=== PATIENT | male | born 1980 | race Hispanic/Latino ===

== ENCOUNTER 2018-05-20 19:57 | Inpatient (IN) | payer MEDICARE ==
[2018-05-20] MEDS ORDERED: ASPIRIN PO ONE (20:27)
[2018-05-20 20:53] LABS: Hematocrit 40.1 % (35.5-45.6); Hemoglobin 13.5 gm/dl (11.8-15.2); Mean Corpuscular HGB Conc 34 % (32-34); Mean Corpuscular Volume 87 fl (84-94); Platelet Count 217 K/mm3 (140-440); Red Blood Count 4.61 M/mm3 (3.65-5.03); Red Cell Distribution Width 14.4 % (13.2-15.2)
--- NOTE | 2018-05-20 21:14 | Emergency Department Report ---
ED Chest Pain HPI - General Chief Complaint: Chest Pain Stated Complaint: CHEST PAIN Time Seen by Provider: 05/20/18 20:50 Source: patient, EMS Mode of arrival: Stretcher Limitations: Other - History of Present Illness Initial Comments: Patient is a 38-year-old male that presents complaints of chest pain. Patient states the chest pain is already previously states the pain is a 10 out of 10. Patient states the pain is a sharp pain. Patient states the pain is better with rest and worse with exertion. Patient states he had an AR in the past. Patient lives in a intermediate for his psychiatric disorders. Patient has history of diabetes. MD Complaint: chest pain -: Sudden Onset: during rest Pain Location: substernal, left chest Pain Radiation: none Severity: severe Severity scale (0 -10): 10 Quality: sharp Consistency: constant Improves With: rest Worsens With: exertion re: denies: nausea, vomting, diaphoresis, dyspnea, sense of impending doom Other Symptoms: denies: cough, fever, syncope, rash, acid taste in mouth, leg swelling, palpitations, burping Treatments Prior to Arrival: aspirin Aspirin use within the Past 7 Days: (1) Yes - Related Data On Oral Contraceptives: No Home Medications Medication Instructions Recorded Confirmed Last Taken Benztropine [Cogentin] 2 mg PO BID 05/20/18 05/20/18 Unknown Citalopram [Celexa] 1 tab PO QAM 05/20/18 05/20/18 Unknown Divalproex ER [DepaKOTE ER] 500 mg PO HS 05/20/18 05/20/18 Unknown OLANZapine [Zyprexa] 1 tab PO HS 05/20/18 05/20/18 Unknown Paliperidone Palmitate [Invega 273 mg IM QMONTH 05/20/18 05/20/18 Unknown Trinza] Pantoprazole [Protonix TAB] 20 mg PO QDAY 05/20/18 05/20/18 Unknown Allergies Allergy/AdvReac Type Severity Reaction Status Date / Time No Known Allergies Allergy Verified 05/20/18 20:59 Heart Score - HEART Score History: Moderately suspicious EKG: Non-specific Age: < 45 Risk factors: > 3 risk factors or hx of atherosclerotic disease Troponin: < normal limit HEART Score: 4 ED Review of Systems ROS: Stated complaint: CHEST PAIN Other details as noted in HPI Constitutional: denies: chills, fever Eyes: denies: eye pain, eye discharge, vision change ENT: denies: ear pain, throat pain Respiratory: denies: cough, shortness of breath, wheezing Cardiovascular: chest pain. denies: palpitations Endocrine: no symptoms reported Gastrointestinal: denies: abdominal pain, nausea, diarrhea Genitourinary: denies: urgency, dysuria Musculoskeletal: denies: back pain, joint swelling, arthralgia Skin: denies: rash, lesions Neurological: denies: headache, weakness, paresthesias Psychiatric: denies: anxiety, depression Hematological/Lymphatic: denies: easy bleeding, easy bruising ED Past Medical Hx - Past Medical History Previous Medical History?: Yes Hx Heart Attack/AMI: Yes (2006 one stent) Hx Diabetes: Yes Additional medical history: Bipolar, developmental delay - Surgical History Past Surgical History?: Yes Additional Surgical History: Left Knee - Family History Family history: hypertension - Social History Smoking Status: Never Smoker Substance Use Type: None - Medications Home Medications: Home Medications Medication Instructions Recorded Confirmed Last Taken Type Benztropine [Cogentin] 2 mg PO BID 05/20/18 05/20/18 Unknown History Citalopram [Celexa] 1 tab PO QAM 05/20/18 05/20/18 Unknown History Divalproex ER [DepaKOTE ER] 500 mg PO HS 05/20/18 05/20/18 Unknown History OLANZapine [Zyprexa] 1 tab PO HS 05/20/18 05/20/18 Unknown History Paliperidone Palmitate [Invega 273 mg IM QMONTH 05/20/18 05/20/18 Unknown History Trinza] Pantoprazole [Protonix TAB] 20 mg PO QDAY 05/20/18 05/20/18 Unknown History ED Physical Exam - General Limitations: No Limitations, Other General appearance: alert, in no apparent distress - Head Head exam: Present: atraumatic, normocephalic - Eye Eye exam: Present: normal appearance - ENT ENT exam: Present: mucous membranes moist - Neck Neck exam: Present: normal inspection - Respiratory Respiratory exam: Present: normal lung sounds bilaterally. Absent: respiratory distress - Cardiovascular Cardiovascular Exam: Present: regular rate, normal rhythm. Absent: systolic murmur, diastolic murmur, rubs, gallop - GI/Abdominal GI/Abdominal exam: Present: soft, normal bowel sounds - Rectal Rectal exam: Present: deferred - Extremities Exam Extremities exam: Present: normal inspection - Back Exam Back exam: Present: normal inspection - Neurological Exam Neurological exam: Present: alert, oriented X3 - Psychiatric Psychiatric exam: Present: normal affect, normal mood - Skin Skin exam: Present: warm, dry, intact, normal color. Absent: rash ED Course Vital Signs 05/20/18 05/20/18 05/20/18 20:21 21:05 22:00 Temperature 98.2 F Pulse Rate 82 92 H 85 Respiratory 18 21 19 Rate Blood Pressure 150/83 126/86 Blood Pressure 129/79 [Left] O2 Sat by Pulse 99 96 97 Oximetry 05/20/18 23:00 Temperature Pulse Rate 82 Respiratory 19 Rate Blood Pressure 116/71 Blood Pressure [Left] O2 Sat by Pulse 96 Oximetry - Reevaluation(s) Reevaluation #1: Discussed all results with patient. Patient will be admitted to the hospitalist service. Patient agrees with plan of care. 05/20/18 22:41 - Consultations Consultation #1: Hospitalist consulted for admission. Hospitalist to admit patient. Hospitalist to assume care patient. 05/20/18 22:41 TAYLOR score - Taylor Score Age > 65: (0) No Aspirin use within the Past 7 Days: (1) Yes 3 or more CAD Risk Factors: (1) Yes 2 or more Angina events in past 24 hrs: (0) No Known CAD with more than 50% Stenosis: (1) Yes Elevated Cardiac Markers: (0) No ST Deviation Greater than 0.5mm: (0) No TAYLOR Score: 3 ED Medical Decision Making - Lab Data Result diagrams: 05/21/18 02:03 05/21/18 02:03 - EKG Data -: EKG Interpreted by Me EKG shows normal: sinus rhythm, axis, intervals, QRS complexes, ST-T waves Rate: normal - Radiology Data Radiology results: report reviewed, image reviewed interpreted by me: Negative chest x-ray PROCEDURE: XR CHEST 1V AP TECHNIQUE: Chest radiograph single view. HISTORY: Chest Pain COMPARISONS: None . FINDINGS: Heart: Normal. Mediastinum/Vessels: Normal. Lungs/Pleural space: Normal. Bony thorax: No acute osseous abnormality. Life support devices: None. IMPRESSION: No acute cardiopulmonary abnormality. - Medical Decision Making Patient is a 38-year-old male that presents to emergency with chest pain. Patient has history of AR and CAD. Patient was admitted to the hospitalist service for further evaluation and treatment and rule out ACS. Patient's initial cardiac workup is negative. - Differential Diagnosis chest pain. ACS. Critical care attestation.: If time is entered above; I have spent that time in minutes in the direct care of this critically ill patient, excluding procedure time. ED Disposition Clinical Impression: Chest pain Qualifiers: Chest pain type: unspecified Qualified Code(s): R07.9 - Chest pain, unspecified CAD (coronary artery disease) Qualifiers: Coronary Disease-Associated Artery/Lesion type: unspecified vessel or lesion type [place] vs. transplanted heart: [place] heart Associated angina: angina presence unspecified Qualified Code(s): I25.10 - Atherosclerotic heart disease of [place] coronary artery without angina pectoris Disposition: 09 OP ADMIT IP TO THIS HOSP Is pt being admited?: Yes Does the pt Need Aspirin: No Condition: Stable Time of Disposition: 22:46
[2018-05-20 21:33] LABS: Basophils % (Manual) 0 % (0.0-1.8); Total Cells Counted 100
[2018-05-20 21:34] LABS: Anisocytosis 1+
[2018-05-20 21:59] LABS: BUN/Creatinine Ratio 24; Blood Urea Nitrogen 17 mg/dL (9-20); Calcium 9.8 mg/dL (8.4-10.2); Hemolysis Index 1
--- NOTE | 2018-05-21 00:13 | XRay Report ---
PROCEDURE: XR CHEST 1V AP TECHNIQUE: Chest radiograph single view. HISTORY: Chest Pain COMPARISONS: None . FINDINGS: Heart: Normal. Mediastinum/Vessels: Normal. Lungs/Pleural space: Normal. Bony thorax: No acute osseous abnormality. Life support devices: None. IMPRESSION: No acute cardiopulmonary abnormality. This document is electronically signed by Jamila Taylor DO., May 21 2018 12:10:58 AM ET
[2018-05-21] MEDS ORDERED: SODIUM CHLORIDE FLUSH SYRINGE 10 ML IV PRN ×2 (00:35)
[2018-05-21] MEDS ORDERED: TYLENOL PO PRN (00:35)
[2018-05-21] MEDS ORDERED: ZOFRAN IV PRN (00:35)
[2018-05-21 02:25] LABS: Hematocrit 38.1 % (35.5-45.6); Hemoglobin 12.8 gm/dl (11.8-15.2); Mean Corpuscular HGB Conc 34 % (32-34); Mean Corpuscular Volume 87 fl (84-94); Platelet Count 212 K/mm3 (140-440); Red Blood Count 4.38 M/mm3 (3.65-5.03); Red Cell Distribution Width 14.5 % (13.2-15.2)
[2018-05-21 02:40] LABS: BUN/Creatinine Ratio 28; Blood Urea Nitrogen 22 mg/dL (9-20); Calcium 9.4 mg/dL (8.4-10.2); Hemolysis Index 5
--- NOTE | 2018-05-21 03:48 | History and Physical Report ---
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 Patient states that he has a similar chest before, it is a burning chest pains that is usually release with antacid, patient reports shortness of breath but denies diaphoresis denies nausea denies vomiting denies any acute illness. Patient states that he got taken several antacids without relief of the pain he decided to come to the ER for evaluation. In the ER patient had normal EKG, cardiac enzymes were negative, Chest x-ray was normal, patient's E is admitted for further evaluation of the chest pain. Medications and Allergies Allergies Allergy/AdvReac Type Severity Reaction Status Date / Time No Known Allergies Allergy Verified 05/20/18 20:59 Home Medications Medication Instructions Recorded Confirmed Last Taken Type Citalopram [Celexa] 1 tab PO QAM 05/20/18 05/20/18 Unknown History Divalproex ER [Depakote ER] 500 mg PO HS 05/20/18 05/20/18 Unknown History OLANZapine [Zyprexa] 1 tab PO HS 05/20/18 05/20/18 Unknown History Paliperidone Palmitate [Invega 273 mg IM QMONTH 05/20/18 05/20/18 Unknown History Trinza] Benztropine [Cogentin] 2 mg PO BID #60 05/21/18 05/20/18 Unknown Rx Pantoprazole [Protonix TAB] 40 mg PO QDAY #60 05/21/18 05/20/18 Unknown Rx Ciprofloxacin HCl [Cipro] 500 mg PO QDAY #5 tablet 05/24/18 Unknown Rx Ibuprofen [Motrin 600 MG tab] 600 mg PO Q8H PRN #15 tablet 05/24/18 Unknown Rx Polyethylene Glycol 3350 [Miralax 17 gm PO QDAY #15 packet 05/24/18 Unknown Rx 3350] Active Meds: Active Medications Acetaminophen (Tylenol) 650 mg PO Q4H PRN PRN Reason: Pain MILD(1-3)/Fever >100.5/DEL RIO Enoxaparin Sodium (Lovenox) 40 mg SUB-Q QDAY RIANNA Famotidine (Pepcid) 20 mg PO BID RIANNA Ondansetron HCl (Zofran) 4 mg IV Q8H PRN PRN Reason: Nausea And Vomiting Sodium Chloride (Sodium Chloride Flush Syringe 10 Ml) 10 ml IV BID RIANNA Sodium Chloride (Sodium Chloride Flush Syringe 10 Ml) 10 ml IV PRN PRN PRN Reason: LINE FLUSH Sodium Chloride (Sodium Chloride Flush Syringe 10 Ml) 10 ml IV PRN PRN PRN Reason: LINE FLUSH Exam - Constitutional Vitals: Temp Pulse Resp BP Pulse Ox 98.2 F 85 19 116/71 96 05/20/18 21:05 05/21/18 00:30 05/20/18 23:00 05/20/18 23:00 05/20/18 23:00 Results - Labs CBC & Chem 7: 05/21/18 02:03 05/21/18 02:03 Labs: Laboratory Last Values WBC 11.5 K/mm3 (4.5-11.0) H 05/21/18 02:03 RBC 4.38 M/mm3 (3.65-5.03) 05/21/18 02:03 Hgb 12.8 gm/dl (11.8-15.2) 05/21/18 02:03 Hct 38.1 % (35.5-45.6) 05/21/18 02:03 MCV 87 fl (84-94) 05/21/18 02:03 MCH 29 pg (28-32) 05/21/18 02:03 MCHC 34 % (32-34) 05/21/18 02:03 RDW 14.5 % (13.2-15.2) 05/21/18 02:03 Plt Count 212 K/mm3 (140-440) 05/21/18 02:03 Lymph # Centrifugal Operator 05/21/18 02:03 Add Manual Diff Complete 05/20/18 20:32 Total Counted 100 05/20/18 20:32 Seg Neuts % (Manual) 65.0 % (40.0-70.0) 05/20/18 20:32 Band Neutrophils % 0 % 05/20/18 20:32 Lymphocytes % (Manual) 28.0 % (13.4-35.0) 05/20/18 20:32 Reactive Lymphs % (Man) 0 % 05/20/18 20:32 Monocytes % (Manual) 6.0 % (0.0-7.3) 05/20/18 20:32 Eosinophils % (Manual) 1.0 % (0.0-4.3) 05/20/18 20:32 Basophils % (Manual) 0 % (0.0-1.8) 05/20/18 20:32 Metamyelocytes % 0 % 05/20/18 20:32 Myelocytes % 0 % 05/20/18 20:32 Promyelocytes % 0 % 05/20/18 20:32 Blast Cells % 0 % 05/20/18 20:32 Nucleated RBC % Not Reportable 05/20/18 20:32 Seg Neutrophils # Man 8.3 K/mm3 (1.8-7.7) H 05/20/18 20:32 Band Neutrophils # 0.0 K/mm3 05/20/18 20:32 Lymphocytes # (Manual) 3.6 K/mm3 (1.2-5.4) 05/20/18 20:32 Abs React Lymphs (Man) 0.0 K/mm3 05/20/18 20:32 Monocytes # (Manual) 0.8 K/mm3 (0.0-0.8) 05/20/18 20:32 Eosinophils # (Manual) 0.1 K/mm3 (0.0-0.4) 05/20/18 20:32 Basophils # (Manual) 0.0 K/mm3 (0.0-0.1) 05/20/18 20:32 Metamyelocytes # 0.0 K/mm3 05/20/18 20:32 Myelocytes # 0.0 K/mm3 05/20/18 20:32 Promyelocytes # 0.0 K/mm3 05/20/18 20:32 Blast Cells # 0.0 K/mm3 05/20/18 20:32 WBC Morphology Not Reportable 05/20/18 20:32 Hypersegmented Neuts Not Reportable 05/20/18 20:32 Hyposegmented Neuts Not Reportable 05/20/18 20:32 Hypogranular Neuts Not Reportable 05/20/18 20:32 Smudge Cells Not Reportable 05/20/18 20:32 Toxic Granulation Not Reportable 05/20/18 20:32 Toxic Vacuolation Not Reportable 05/20/18 20:32 Dohle Bodies Not Reportable 05/20/18 20:32 Pelger-Huet Anomaly Not Reportable 05/20/18 20:32 Chester Rods Not Reportable 05/20/18 20:32 Platelet Estimate Appears normal 05/20/18 20:32 Clumped Platelets Not Reportable 05/20/18 20:32 Plt Clumps, EDTA Not Reportable 05/20/18 20:32 Large Platelets Not Reportable 05/20/18 20:32 Giant Platelets Not Reportable 05/20/18 20:32 Platelet Satelliting Not Reportable 05/20/18 20:32 Plt Morphology Comment Not Reportable 05/20/18 20:32 RBC Morphology Not Reportable 05/20/18 20:32 Dimorphic RBCs Not Reportable 05/20/18 20:32 Polychromasia Not Reportable 05/20/18 20:32 Hypochromasia Not Reportable 05/20/18 20:32 Poikilocytosis Not Reportable 05/20/18 20:32 Anisocytosis 1+ 05/20/18 20:32 Microcytosis Few 05/20/18 20:32 Macrocytosis Not Reportable 05/20/18 20:32 Spherocytes Not Reportable 05/20/18 20:32 Pappenheimer Bodies Not Reportable 05/20/18 20:32 Sickle Cells Not Reportable 05/20/18 20:32 Target Cells Not Reportable 05/20/18 20:32 Tear Drop Cells Not Reportable 05/20/18 20:32 Ovalocytes Not Reportable 05/20/18 20:32 Helmet Cells Not Reportable 05/20/18 20:32 [place] Bodies Not Reportable 05/20/18 20:32 [place] Rings Not Reportable 05/20/18 20:32 Sherry Cells Not Reportable 05/20/18 20:32 Bite Cells Not Reportable 05/20/18 20:32 Crenated Cell Not Reportable 05/20/18 20:32 Elliptocytes Not Reportable 05/20/18 20:32 Acanthocytes (Spur) Not Reportable 05/20/18 20:32 Rouleaux Not Reportable 05/20/18 20:32 Hemoglobin C Crystals Not Reportable 05/20/18 20:32 Schistocytes Not Reportable 05/20/18 20:32 Malaria parasites Not Reportable 05/20/18 20:32 Mateo Bodies Not Reportable 05/20/18 20:32 Hem Pathologist Commnt No 05/20/18 20:32 Sodium 143 mmol/L (137-145) 05/21/18 02:03 Potassium 3.8 mmol/L (3.6-5.0) 05/21/18 02:03 Chloride 103.8 mmol/L (98-107) 05/21/18 02:03 Carbon Dioxide 28 mmol/L (22-30) 05/21/18 02:03 Anion Gap 15 mmol/L 05/21/18 02:03 BUN 22 mg/dL (9-20) H 05/21/18 02:03 Creatinine 0.8 mg/dL (0.8-1.5) 05/21/18 02:03 Estimated GFR > 60 ml/min 05/21/18 02:03 BUN/Creatinine Ratio 28 % 05/21/18 02:03 Glucose 129 mg/dL (75-100) H 05/21/18 02:03 Calcium 9.4 mg/dL (8.4-10.2) 05/21/18 02:03 Troponin T < 0.010 ng/mL (0.00-0.029) 05/21/18 01:56 Assessment and Plan Assessment and plan: 1. Chest pain r/o cardiac versus GI etiology. 2. DM type II (stable) 3. CAD status post stent 4. Bipolar disorder 5. GERD (on PPI) 6. Mentally challenge Plan: Patient is admitted for chest pain Continue cardiac enzymes every 62 Monitor vital signs/telemetry which is his Resume home meds Insulin per sliding scale PPI for heartburn Nothing by mouth for stress test in a.m. Further plan per the stress test results Plan of care discussed with patient (needs reinforcement) Patient's condition and plan of care was discussed with Dr. Flores Advance Directives: Yes VTE prophylaxis?: Chemical Plan of care discussed with patient/family: Yes <RUTHANN FLORES - Last Filed: 05/26/18 22:41> History of Present Illness Date of admission: 05/20/18 23:16 Medications and Allergies Active Meds: Active Medications Acetaminophen (Tylenol) 650 mg PO Q4H PRN PRN Reason: Pain MILD(1-3)/Fever >100.5/DEL RIO Benztropine Mesylate (Cogentin) 2 mg PO BID RIANNA Citalopram Hydrobromide (Celexa) 20 mg PO QAM RIANNA Divalproex Sodium (Depakote Er) 500 mg PO HS RIANNA Enoxaparin Sodium (Lovenox) 40 mg SUB-Q QDAY RIANNA Famotidine (Pepcid) 20 mg PO BID RIANNA Insulin Human Regular (Humulin R) 0 units SUB-Q ACHS RIANNA; Protocol Miscellaneous Medication (Paliperidone Palmitate [Invega Trinza]) 273 mg IM QMONTH RIANNA Olanzapine (Zyprexa) 15 mg PO HS RIANNA Ondansetron HCl (Zofran) 4 mg IV Q8H PRN PRN Reason: Nausea And Vomiting Pantoprazole Sodium (Protonix) 20 mg PO QDAY RIANNA Sodium Chloride (Sodium Chloride Flush Syringe 10 Ml) 10 ml IV BID RIANNA Sodium Chloride (Sodium Chloride Flush Syringe 10 Ml) 10 ml IV PRN PRN PRN Reason: LINE FLUSH Sodium Chloride (Sodium Chloride Flush Syringe 10 Ml) 10 ml IV PRN PRN PRN Reason: LINE FLUSH Exam - Constitutional Vitals: Temp Pulse Resp BP Pulse Ox 98.2 F 85 19 116/71 96 05/20/18 21:05 05/21/18 00:30 05/20/18 23:00 05/20/18 23:00 05/20/18 23:00 Results - Labs CBC & Chem 7: 05/21/18 02:03 05/21/18 02:03 Labs: Laboratory Last Values WBC 11.5 K/mm3 (4.5-11.0) H 05/21/18 02:03 RBC 4.38 M/mm3 (3.65-5.03) 05/21/18 02:03 Hgb 12.8 gm/dl (11.8-15.2) 05/21/18 02:03 Hct 38.1 % (35.5-45.6) 05/21/18 02:03 MCV 87 fl (84-94) 05/21/18 02:03 MCH 29 pg (28-32) 05/21/18 02:03 MCHC 34 % (32-34) 05/21/18 02:03 RDW 14.5 % (13.2-15.2) 05/21/18 02:03 Plt Count 212 K/mm3 (140-440) 05/21/18 02:03 Lymph # Centrifugal Operator 05/21/18 02:03 Add Manual Diff Complete 05/20/18 20:32 Total Counted 100 05/20/18 20:32 Seg Neuts % (Manual) 65.0 % (40.0-70.0) 05/20/18 20:32 Band Neutrophils % 0 % 05/20/18 20:32 Lymphocytes % (Manual) 28.0 % (13.4-35.0) 05/20/18 20:32 Reactive Lymphs % (Man) 0 % 05/20/18 20:32 Monocytes % (Manual) 6.0 % (0.0-7.3) 05/20/18 20:32 Eosinophils % (Manual) 1.0 % (0.0-4.3) 05/20/18 20:32 Basophils % (Manual) 0 % (0.0-1.8) 05/20/18 20:32 Metamyelocytes % 0 % 05/20/18 20:32 Myelocytes % 0 % 05/20/18 20:32 Promyelocytes % 0 % 05/20/18 20:32 Blast Cells % 0 % 05/20/18 20:32 Nucleated RBC % Not Reportable 05/20/18 20:32 Seg Neutrophils # Man 8.3 K/mm3 (1.8-7.7) H 05/20/18 20:32 Band Neutrophils # 0.0 K/mm3 05/20/18 20:32 Lymphocytes # (Manual) 3.6 K/mm3 (1.2-5.4) 05/20/18 20:32 Abs React Lymphs (Man) 0.0 K/mm3 05/20/18 20:32 Monocytes # (Manual) 0.8 K/mm3 (0.0-0.8) 05/20/18 20:32 Eosinophils # (Manual) 0.1 K/mm3 (0.0-0.4) 05/20/18 20:32 Basophils # (Manual) 0.0 K/mm3 (0.0-0.1) 05/20/18 20:32 Metamyelocytes # 0.0 K/mm3 05/20/18 20:32 Myelocytes # 0.0 K/mm3 05/20/18 20:32 Promyelocytes # 0.0 K/mm3 05/20/18 20:32 Blast Cells # 0.0 K/mm3 05/20/18 20:32 WBC Morphology Not Reportable 05/20/18 20:32 Hypersegmented Neuts Not Reportable 05/20/18 20:32 Hyposegmented Neuts Not Reportable 05/20/18 20:32 Hypogranular Neuts Not Reportable 05/20/18 20:32 Smudge Cells Not Reportable 05/20/18 20:32 Toxic Granulation Not Reportable 05/20/18 20:32 Toxic Vacuolation Not Reportable 05/20/18 20:32 Dohle Bodies Not Reportable 05/20/18 20:32 Pelger-Huet Anomaly Not Reportable 05/20/18 20:32 [place] Rods Not Reportable 05/20/18 20:32 Platelet Estimate Appears normal 05/20/18 20:32 Clumped Platelets Not Reportable 05/20/18 20:32 Plt Clumps, EDTA Not Reportable 05/20/18 20:32 Large Platelets Not Reportable 05/20/18 20:32 Giant Platelets Not Reportable 05/20/18 20:32 Platelet Satelliting Not Reportable 05/20/18 20:32 Plt Morphology Comment Not Reportable 05/20/18 20:32 RBC Morphology Not Reportable 05/20/18 20:32 Dimorphic RBCs Not Reportable 05/20/18 20:32 Polychromasia Not Reportable 05/20/18 20:32 Hypochromasia Not Reportable 05/20/18 20:32 Poikilocytosis Not Reportable 05/20/18 20:32 Anisocytosis 1+ 05/20/18 20:32 Microcytosis Few 05/20/18 20:32 Macrocytosis Not Reportable 05/20/18 20:32 Spherocytes Not Reportable 05/20/18 20:32 Pappenheimer Bodies Not Reportable 05/20/18 20:32 Sickle Cells Not Reportable 05/20/18 20:32 Target Cells Not Reportable 05/20/18 20:32 Tear Drop Cells Not Reportable 05/20/18 20:32 Ovalocytes Not Reportable 05/20/18 20:32 Helmet Cells Not Reportable 05/20/18 20:32 [place] Bodies Not Reportable 05/20/18 20:32 [place] Rings Not Reportable 05/20/18 20:32 Sherry Cells Not Reportable 05/20/18 20:32 Bite Cells Not Reportable 05/20/18 20:32 Crenated Cell Not Reportable 05/20/18 20:32 Elliptocytes Not Reportable 05/20/18 20:32 Acanthocytes (Spur) Not Reportable 05/20/18 20:32 Rouleaux Not Reportable 05/20/18 20:32 Hemoglobin C Crystals Not Reportable 05/20/18 20:32 Schistocytes Not Reportable 05/20/18 20:32 Malaria parasites Not Reportable 05/20/18 20:32 Mateo Bodies Not Reportable 05/20/18 20:32 Hem Pathologist Commnt No 05/20/18 20:32 Sodium 143 mmol/L (137-145) 05/21/18 02:03 Potassium 3.8 mmol/L (3.6-5.0) 05/21/18 02:03 Chloride 103.8 mmol/L (98-107) 05/21/18 02:03 Carbon Dioxide 28 mmol/L (22-30) 05/21/18 02:03 Anion Gap 15 mmol/L 05/21/18 02:03 BUN 22 mg/dL (9-20) H 05/21/18 02:03 Creatinine 0.8 mg/dL (0.8-1.5) 05/21/18 02:03 Estimated GFR > 60 ml/min 05/21/18 02:03 BUN/Creatinine Ratio 28 % 05/21/18 02:03 Glucose 129 mg/dL (75-100) H 05/21/18 02:03 Calcium 9.4 mg/dL (8.4-10.2) 05/21/18 02:03 Troponin T < 0.010 ng/mL (0.00-0.029) 05/21/18 01:56 Triglycerides 216 mg/dL (2-149) H 05/21/18 02:03 Cholesterol 162 mg/dL (50-199) 05/21/18 02:03 LDL Cholesterol Direct 113 mg/dL (50-130) 05/21/18 02:03 HDL Cholesterol 25 mg/dL (40-59) L 05/21/18 02:03 Cholesterol/HDL Ratio 6.48 % 05/21/18 02:03 Assessment and Plan Assessment and plan: 38-year-old man with a history of hypertension, coronary artery disease, bipolar, developmental delay is emergency room with complaints of chest pain located in the epigastric area. He describes a sharp, intermittent every 5 minutes, associated with shortness of breath. His physical exam is benign, currently would stress test
[2018-05-21] MEDS ORDERED: PALIPERIDONE PALMITATE IM SCH (04:15)
[2018-05-21 04:49] LABS: Chol/HDL Ratio 6.48 %
[2018-05-21 06:06] LABS: Band Neutrophils # (Manual) 0.1 K/mm3; Basophils % (Manual) 0 % (0.0-1.8); RBC Morphology Normal; Total Cells Counted 100
[2018-05-21] MEDS: HumuLIN R SUB-Q SCH ×4 (07:40→21:11)
[2018-05-21] MEDS ORDERED: LEXISCAN IV ONE ×2 (07:58→08:33)
[2018-05-21] MEDS: LOVENOX SUB-Q SCH ×2 (10:13→13:22)
--- NOTE | 2018-05-21 11:48 | Discharge Summary ---
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 His CE was normal, stress test was normal. He was then discharge back to [facility] in medically stable condition. Discharge Diagnosis: 1. Chest pain, likely from GERD, will cont PPI - stress test was normal 2. DM type II (stable) 3. CAD status post stent 4. Bipolar disorder 5. GERD (on PPI) 6. Mentally challenged Disposition: DC-01 TO HOME OR SELFCARE Time spent for discharge: 34 minutes Core Measure Documentation - Palliative Care Palliative Care/ Comfort Measures: Not Applicable - Core Measures Any of the following diagnoses?: none Exam - Constitutional Vitals: Temp Pulse Resp BP Pulse Ox 98.2 F 73 20 126/87 94 05/21/18 10:54 05/21/18 10:54 05/21/18 10:54 05/21/18 10:54 05/21/18 10:54 General appearance: Present: no acute distress, well-nourished - EENT Eyes: Present: PERRL ENT: hearing intact, clear oral mucosa - Neck Neck: Present: supple, normal ROM - Respiratory Respiratory effort: normal Respiratory: bilateral: CTA - Cardiovascular Heart Sounds: Present: S1 & S2. Absent: rub, click - Extremities Extremities: pulses symmetrical, No edema Peripheral Pulses: within normal limits - Abdominal General gastrointestinal: Present: soft, non-tender, non-distended, normal bowel sounds - Integumentary Integumentary: Present: clear, warm, dry - Musculoskeletal Musculoskeletal: gait normal, strength equal bilaterally - Psychiatric Psychiatric: appropriate mood/affect, intact judgment & insight - Neurologic Neurologic: CNII-XII intact, moves all extremities Plan Activity: advance as tolerated Weight Bearing Status: Weight Bear as Tolerated Diet: low fat, low salt Follow up with: RENATA BOBO MD [Primary Care Provider] - 7 Days
[2018-05-21] MEDS: PEPCID PO SCH ×2 (12:13→21:10)
[2018-05-21] MEDS: PROTONIX PO SCH (12:13)
[2018-05-21] MEDS: COGENTIN PO SCH ×2 (12:13→21:11)
[2018-05-21] MEDS: celeXA PO SCH (12:13)
[2018-05-21] MEDS: SODIUM CHLORIDE FLUSH SYRINGE 10 ML IV SCH ×2 (12:15→21:12)
--- NOTE | 2018-05-21 12:46 | Treadmill Report ---
NUCLEAR PERFUSION STUDY REASON FOR STUDY: Chest pain. READING PHYSICIAN: Carson Amaya MD IMAGING PROTOCOL: The patient received 10 mCi of Technetium 99m Tetrofosmin for resting image and 28 mCi of Technetium 99m Tetrofosmin for stress imaging. The imaging for the whole procedure was completed 30-90 minutes following the initial injection of Technetium 99m Tetrofosmin. The SPECT imaging in the 180 degree arc was performed in the right anterior oblique projection. Computerized reconstruction of the images was performed for analysis. IMAGING RESULTS: Normal cavity size from stress to rest. Normal distribution of radionuclide in the anterior, inferior, septal, and apical regions. Gated SPECT, EF greater than 65% with no wall motion abnormality. The patient infused Lexiscan with no EKG changes. SUMMARY: 1. Negative Lexiscan EKG. 2. Normal rest and stress myocardial perfusion scan. No significant stress ischemia. No wall motion abnormality. Gated SPECT, EF greater than 65%. JOB# [id number] ALEJANDRA/ASA
[2018-05-22 08:05] VITALS: BP 114/73
[2018-05-22] MEDS: celeXA PO SCH (09:50)
[2018-05-22] MEDS: PROTONIX PO SCH (09:51)
[2018-05-22] MEDS: COGENTIN PO SCH (09:51)
[2018-05-22] MEDS: LOVENOX SUB-Q SCH (11:51)
[2018-05-22] MEDS: HumuLIN R SUB-Q SCH (11:51)
--- NOTE | 2018-05-22 12:53 | Event Note ---
Date: 05/22/18 Patient was not discharged yesterday because communication could not be made with [place]. He was discharged today.
== END 2018-05-22 10:00 | disposition home or self-care (01) | DRG 392 ==
LOC: ED 19:57 → 4A 23:16
PROVIDERS: ADMIT Internal Medicine; ATTEND Internal Medicine
DX: K21.9 Gastro-esophageal reflux disease without esophagitis (principal); I25.10 Atherosclerotic heart disease of native coronary artery without angina pectoris; F31.9 Bipolar disorder, unspecified; E11.9 Type 2 diabetes mellitus without complications; Z95.5 Presence of coronary angioplasty implant and graft; Z79.4 Long term (current) use of insulin; Z79.899 Other long term (current) drug therapy; Z82.49 Family history of ischemic heart disease and other diseases of the circulatory system
CPT/HCPCS: 36415; 71045; 78452; 80048; 80061; 82962; 84484; 85007; 85025; 87116; 93005; 93010; 93017; G0378; A9502; J1650; J2785

== ENCOUNTER 2018-05-24 16:38 | Emergency (ER) | payer MEDICARE ==
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
[2018-05-24 17:16] VITALS: BP 126/85
[2018-05-24 18:14] LABS: Hematocrit 40.3 % (35.5-45.6); Hemoglobin 13.6 gm/dl (11.8-15.2); Mean Corpuscular HGB Conc 34 % (32-34); Mean Corpuscular Volume 86 fl (84-94); Platelet Count 225 K/mm3 (140-440); Red Blood Count 4.67 M/mm3 (3.65-5.03)
[2018-05-24 18:34] LABS: Bilirubin,Urine NEG (Negative); Blood,Urine NEG (Negative); Color,Urine Amber (Yellow); Mucus,Urine 3+ /HPF
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
[2018-05-24] MEDS ORDERED: IBUPROFEN PO ONE (20:08)
--- NOTE | 2018-05-24 20:53 | Cat Scan Report ---
PROCEDURE: CT ABDOMEN PELVIS WO CON TECHNIQUE: Axial helical imaging through the abdomen and pelvis with sagittal and coronal reformatte d images obtained. HISTORY: r/o kidney stones COMPARISONS: None FINDINGS: The lung bases are without infiltrate, pneumothorax or pleural fluid collection. There are calcified lymph nodes in the mediastinum and right hilum consistent with chronic granulomat ous change. The liver, spleen, pancreas and adrenal glands are unremarkable. The gallbladder is moderately distended and unremarkable. The kidneys are unremarkable. There is no evidence of hydronephrosis, hydroureter or urinary tract ca lculi. The bowel is normal caliber. There is a moderate amount of stool in the ascending, transverse, descending and sigmoid colon. The appendix is not definitively visualized. There is no evidence of inflammatory change in the expec sergey location of the appendix. There is no evidence of pneumoperitoneum or free fluid. The abdominal aorta is normal caliber. There is no evidence of intra-abdominal adenopathy. The urinary bladder is decompressed which limits evaluation. The prostate gland and seminal vesicles are unremarkable. The bony structures are are notable for the appearance of canal stenosis at the L4-L5 level secondary to spondylitic change possibly superimposed on congenital canal stenosis. IMPRESSION: 1. No evidence of an acute intra-abdominal process. 2. No evidence of hydronephrosis nor urinary tract calculi. 3. Spondylitic change lower lumbar spine with canal stenosis possibly superimposed on congenital sebastian l stenosis. 4. Calcified lymph nodes in the mediastinum and right hilum consistent with chronic granulomatous stephane nge. 5. Moderate amount of stool in the ascending, transverse, descending and sigmoid colon. This document is electronically signed by Marissa Duggan MD., May 24 2018 08:51:11 PM ET
[2018-05-24 22:48] LABS: Platelet Estimate Consistent w Auto; RBC Morphology Normal; Total Cells Counted 100
== END 2018-05-24 21:10 | disposition home or self-care (01) ==
LOC: ED 16:38
DX: N39.0 Urinary tract infection, site not specified (principal); K59.00 Constipation, unspecified; I25.2 Old myocardial infarction; E11.9 Type 2 diabetes mellitus without complications; F31.9 Bipolar disorder, unspecified
CPT/HCPCS: 36415; 74176; 81001; 85007; 85025

== ENCOUNTER 2018-06-15 19:07 | Emergency (ER) | payer MEDICARE ==
--- NOTE | 2018-06-15 19:55 | Emergency Department Report ---
Blank Doc - Documentation Documentation: This is a 38-year-old male that presents with chest pain and SOB. This initial assessment/diagnostic orders/clinical plan/treatment(s) is/are subject to change based on patient's health status, clinical progression and re- assessment by fellow clinical providers in the ED. Further treatment and workup at subsequent clinical providers discretion. Patient/guardians urged not to elope from the ED as their condition may be serious if not clinically assessed and managed. Initial orders include: 1- Patient sent to MAIN ED for further evaluation and treatment 2- labs 3- EKG 4- CXR
[2018-06-15 20:20] LABS: Hemoglobin 13.1 gm/dl (11.8-15.2); Mean Corpuscular HGB Conc 34 % (32-34); Mean Corpuscular Volume 86 fl (84-94); Platelet Count 199 K/mm3 (140-440); Red Blood Count 4.42 M/mm3 (3.65-5.03); Red Cell Distribution Width 13.2 % (13.2-15.2)
[2018-06-15 20:31] LABS: INR 0.93 (0.87-1.13)
[2018-06-15 20:32] LABS: Partial Thromboplastin Time 25.6 Sec. (24.2-36.6)
[2018-06-15 20:37] LABS: BUN/Creatinine Ratio 17; Blood Urea Nitrogen 12 mg/dL (9-20); Calcium 9.4 mg/dL (8.4-10.2); Hemolysis Index 8
[2018-06-15] MEDS ORDERED: ZOFRAN ODT PO ONE (20:42)
[2018-06-15] MEDS ORDERED: ALUM-MAG HYDROX-SIMETH 200-200-20MG/5ML PO ONE (20:42)
[2018-06-15] MEDS ORDERED: NORCO 5/325 PO ONE (20:42)
--- NOTE | 2018-06-15 20:48 | Emergency Department Report ---
ED Chest Pain HPI - General Chief Complaint: Chest Pain Stated Complaint: CHEST PAIN Time Seen by Provider: 06/15/18 19:54 Source: patient Mode of arrival: Stretcher Limitations: No Limitations - History of Present Illness Initial Comments: Mr. Holman is a 38 yo male with hx of CAD s/p cardiac stent, [place], DM, GERD Bipolar disorder who presents with one week constant central sharp chest pain. Patient called 911, transported via EMS. ASA given per EMS. CP not associated with exertion. Constant. According to EMR, normal/negative lexican EKG, with normal rest/stress myocardial perfusion scan. EF > 65%, Performed May 21, 2018 during recent hospitalization. MD Complaint: chest pain -: Gradual, week(s) (1) Onset: during rest Pain Location: substernal Pain Radiation: none Severity: moderate Severity scale (0 -10): 10 Quality: sharp Consistency: constant Improves With: nothing Worsens With: nothing - Related Data Home Medications Medication Instructions Recorded Confirmed Last Taken Citalopram [Celexa] 1 tab PO QAM 05/20/18 05/20/18 Unknown Divalproex ER [Depakote ER] 500 mg PO HS 05/20/18 05/20/18 Unknown OLANZapine [Zyprexa] 1 tab PO HS 05/20/18 05/20/18 Unknown Paliperidone Palmitate [Invega 273 mg IM QMONTH 05/20/18 05/20/18 Unknown Trinza] Previous Rx's Medication Instructions Recorded Last Taken Type Benztropine [Cogentin] 2 mg PO BID #60 05/21/18 Unknown Rx Pantoprazole [Protonix TAB] 40 mg PO QDAY #60 05/21/18 Unknown Rx Ciprofloxacin HCl [Cipro] 500 mg PO QDAY #5 tablet 05/24/18 Unknown Rx Ibuprofen [Motrin 600 MG tab] 600 mg PO Q8H PRN #15 tablet 05/24/18 Unknown Rx Polyethylene Glycol 3350 [Miralax 17 gm PO QDAY #15 packet 05/24/18 Unknown Rx 3350] Allergies Allergy/AdvReac Type Severity Reaction Status Date / Time No Known Allergies Allergy Verified 05/20/18 20:59 Heart Score - HEART Score History: Slightly suspicious EKG: Normal Age: < 45 Risk factors: > 3 risk factors or hx of atherosclerotic disease Troponin: < normal limit HEART Score: 2 ED Review of Systems ROS: Stated complaint: CHEST PAIN Other details as noted in HPI Comment: All other systems reviewed and negative Constitutional: denies: fever, malaise Respiratory: denies: cough, shortness of breath Gastrointestinal: denies: abdominal pain ED Past Medical Hx - Past Medical History Previous Medical History?: Yes Hx Heart Attack/AMI: Yes (2005 one stent) Hx Diabetes: Yes Additional medical history: Bipolar, developmental delay,AFIB - Surgical History Hx Coronary Stent: Yes Additional Surgical History: Left Knee - Social History Smoking Status: Never Smoker Substance Use Type: None - Medications Home Medications: Home Medications Medication Instructions Recorded Confirmed Last Taken Type Citalopram [Celexa] 1 tab PO QAM 05/20/18 05/20/18 Unknown History Divalproex ER [Depakote ER] 500 mg PO HS 05/20/18 05/20/18 Unknown History OLANZapine [Zyprexa] 1 tab PO HS 05/20/18 05/20/18 Unknown History Paliperidone Palmitate [Invega 273 mg IM QMONTH 05/20/18 05/20/18 Unknown History Trinza] Benztropine [Cogentin] 2 mg PO BID #60 05/21/18 05/20/18 Unknown Rx Pantoprazole [Protonix TAB] 40 mg PO QDAY #60 05/21/18 05/20/18 Unknown Rx Ciprofloxacin HCl [Cipro] 500 mg PO QDAY #5 tablet 05/24/18 Unknown Rx Ibuprofen [Motrin 600 MG tab] 600 mg PO Q8H PRN #15 tablet 05/24/18 Unknown Rx Polyethylene Glycol 3350 [Miralax 17 gm PO QDAY #15 packet 05/24/18 Unknown Rx 3350] ED Physical Exam - General Limitations: No Limitations General appearance: alert, in no apparent distress - Head Head exam: Present: atraumatic, normocephalic - Eye Eye exam: Present: normal appearance - ENT ENT exam: Present: mucous membranes moist - Neck Neck exam: Present: normal inspection, full ROM. Absent: tenderness, meni ngismus - Respiratory Respiratory exam: Present: normal lung sounds bilaterally. Absent: respiratory distress, wheezes, rales, rhonchi - Cardiovascular Cardiovascular Exam: Present: regular rate, normal rhythm, normal heart sounds. Absent: systolic murmur, diastolic murmur, rubs, gallop - GI/Abdominal GI/Abdominal exam: Present: soft, normal bowel sounds. Absent: distended, ten derness, guarding, rebound - Rectal Rectal exam: Present: deferred - Extremities Exam Extremities exam: Present: normal inspection - Back Exam Back exam: Present: normal inspection - Neurological Exam Neurological exam: Present: alert, oriented X3 - Psychiatric Psychiatric exam: Present: normal affect, normal mood - Skin Skin exam: Present: warm, dry, intact, normal color. Absent: rash ED Course Vital Signs 06/15/18 06/15/18 06/15/18 19:34 19:55 20:42 Temperature 98.4 F 98.4 F Pulse Rate 90 96 H 84 Respiratory 18 18 16 Rate Blood Pressure 115/78 115/78 Blood Pressure 128/83 [Left] O2 Sat by Pulse 95 96 97 Oximetry 06/15/18 20:44 Temperature Pulse Rate 82 Respiratory Rate Blood Pressure Blood Pressure [Left] O2 Sat by Pulse Oximetry TAYLOR score - Taylor Score Age > 65: (0) No Aspirin use within the Past 7 Days: (1) Yes 3 or more CAD Risk Factors: (1) Yes 2 or more Angina events in past 24 hrs: (0) No Known CAD with more than 50% Stenosis: (1) Yes Elevated Cardiac Markers: (0) No ST Deviation Greater than 0.5mm: (0) No TAYLOR Score: 3 ED Medical Decision Making - Lab Data Result diagrams: 06/15/18 20:10 06/15/18 20:10 - EKG Data -: EKG Interpreted by Oh EKG shows normal: sinus rhythm, axis, intervals, QRS complexes, ST-T waves Rate: normal - EKG Data 06/15/18 20:50 NSR rate 80 bpm unchanged from 05/21/2018 - Radiology Data Radiology results: report reviewed - Medical Decision Making Chest pain for one week without indication of PE, ACS, PTX, dissection, or any other emergent cause of chest pain. Two sets of troponin assays negative. Recent hospitalization with normal stress test. atypical for ACS dc' d home Critical care attestation.: If time is entered above; I have spent that time in minutes in the direct care of this critically ill patient, excluding procedure time. ED Disposition Clinical Impression: Chest pain, CAD (coronary artery disease), GERD (gastroesophageal reflux disease) Disposition: DC-01 TO HOME OR SELFCARE Is pt being admited?: No Does the pt Need Aspirin: No Condition: Stable Instructions: Chest Pain (ED) Referrals: [facility] [Outside] - 3-5 Days
[2018-06-15 20:59] LABS: Basophils % (Manual) 0 % (0.0-1.8); Myelocytes # (Manual) 0.1 K/mm3; Total Cells Counted 100
[2018-06-15 21:00] LABS: Anisocytosis 1+; Platelet Estimate Consistent w Auto
--- NOTE | 2018-06-15 22:12 | XRay Report ---
PROCEDURE: XR CHEST ROUTINE 2V TECHNIQUE: 2 view chest HISTORY: Chest Pain COMPARISONS: Comparison is dated May 20, 2018 FINDINGS: Cardiac and mediastinal contours are unremarkable. No focal pulmonary infiltrate identified. No pleur al fluid collection seen. Pulmonary vasculature is unremarkable. IMPRESSION: No acute findings in the chest. This document is electronically signed by Burton Wynn MD., June 15 2018 10:09:54 PM ET
[2018-06-16 00:09] VITALS: BP 129/92
== END 2018-06-16 00:20 | disposition home or self-care (01) ==
LOC: ED 19:07
DX: R07.2 Precordial pain (principal); I25.10 Atherosclerotic heart disease of native coronary artery without angina pectoris; K21.9 Gastro-esophageal reflux disease without esophagitis; I25.2 Old myocardial infarction; I48.91 Unspecified atrial fibrillation; E11.9 Type 2 diabetes mellitus without complications; Z95.1 Presence of aortocoronary bypass graft; Z79.82 Long term (current) use of aspirin
CPT/HCPCS: 36415; 71046; 80048; 84484; 85007; 85025; 85610; 85730; 93005; 93010; 99284; Q0162

== ENCOUNTER 2018-08-17 21:27 | Emergency (ER) | payer MEDICARE ==
--- NOTE | 2018-08-17 22:31 | Emergency Department Report ---
Blank Doc - Documentation Documentation: This is a 38-year-old male that presents with intermittent abdominal pain with blood in stools x6 months. This initial assessment/diagnostic orders/clinical plan/treatment(s) is/are subject to change based on patient's health status, clinical progression and re- assessment by fellow clinical providers in the ED. Further treatment and workup at subsequent clinical providers discretion. Patient/guardians urged not to elope from the ED as their condition may be serious if not clinically assessed and managed. Initial orders include: 1- Patient sent to MAIN ED for further evaluation and treatment 2- labs 3- UA
[2018-08-17 22:53] LABS: Basophils # (Auto) 0.1 K/mm3 (0.0-0.1); Basophils % (Auto) 0.6 % (0.0-1.8); Eosinophils # (Auto) 0.2 K/mm3 (0.0-0.4); Eosinophils % (Auto) 1.9 % (0.0-4.3); Hematocrit 40.5 % (35.5-45.6); Hemoglobin 13.7 gm/dl (11.8-15.2); Lymphocytes # (Auto) 4.1 K/mm3 (1.2-5.4); Lymphocytes % (Auto) 46.2 % (13.4-35.0); Mean Corpuscular HGB Conc 34 % (32-34); Mean Corpuscular Volume 86 fl (84-94); Monocytes # (Auto) 0.8 K/mm3 (0.0-0.8); Monocytes % (Auto) 8.5 % (0.0-7.3); Platelet Count 157 K/mm3 (140-440); Red Blood Count 4.72 M/mm3 (3.65-5.03); Red Cell Distribution Width 12.9 % (13.2-15.2)
[2018-08-17 23:39] LABS: Alanine Aminotransferase 21 units/L (7-56); Albumin 4.4 g/dL (3.9-5); BUN/Creatinine Ratio 18; Blood Urea Nitrogen 14 mg/dL (9-20); Calcium 9.9 mg/dL (8.4-10.2); Hemolysis Index 6
--- NOTE | 2018-08-18 00:27 | Emergency Department Report ---
HPI - General Chief Complaint: GI Bleed Time Seen by Provider: 08/17/18 22:29 - HPI HPI: 38-year-old male presents to the emergency department with a complaint of an exacerbation of some chronic rectal bleeding. Patient says that he has rectal bleeding seen during bowel movements but it has worsened over the past few days. It is bright red blood. He has some mild abdominal discomfort. He does admit to some hard stools recently. Patient says that he has seen a missile pad mechanic in the past but is unsure whether or not he had a colonos copy. He has a past medical history of diabetes, coronary artery disease with previous [place] and one stent, bipolar disorder, schizophrenia and some questionable developmental delay. He has not taken anything for her symptoms prior to presentation today. ED Past Medical Hx - Past Medical History Previous Medical History?: Yes Hx Heart Attack/AMI: Yes (2005 one stent) Hx Diabetes: Yes Hx Psychiatric Treatment: Yes (Bipolar, Schizophrenia, Anxiety) Additional medical history: Bipolar, developmental delay,AFIB - Surgical History Past Surgical History?: Yes Hx Coronary Stent: Yes Additional Surgical History: Left Knee - Social History Smoking Status: Never Smoker Substance Use Type: None - Medications Home Medications: Home Medications Medication Instructions Recorded Confirmed Last Taken Type Citalopram [Celexa] 1 tab PO QAM 05/20/18 05/20/18 Unknown History Divalproex ER [Depakote ER] 500 mg PO HS 05/20/18 05/20/18 Unknown History OLANZapine [Zyprexa] 1 tab PO HS 05/20/18 05/20/18 Unknown History Paliperidone Palmitate [Invega 273 mg IM QMONTH 05/20/18 05/20/18 Unknown History Trinza] Benztropine [Cogentin] 2 mg PO BID #60 05/21/18 05/20/18 Unknown Rx Pantoprazole [Protonix TAB] 40 mg PO QDAY #60 05/21/18 05/20/18 Unknown Rx Ciprofloxacin HCl [Cipro] 500 mg PO QDAY #5 tablet 05/24/18 Unknown Rx Ibuprofen [Motrin 600 MG tab] 600 mg PO Q8H PRN #15 tablet 05/24/18 Unknown Rx Polyethylene Glycol 3350 [Miralax 17 gm PO QDAY #15 packet 05/24/18 Unknown Rx 3350] ED Review of Systems ROS: Stated complaint: RECTAL BLEEDING Other details as noted in HPI Comment: All other systems reviewed and negative Constitutional: denies: fever Eyes: denies: eye pain, vision change ENT: denies: ear pain, throat pain Respiratory: denies: cough, shortness of breath Cardiovascular: denies: chest pain, palpitations Gastrointestinal: abdominal pain, other (bright red blood per rectum). denies: vomiting Genitourinary: denies: dysuria, discharge Musculoskeletal: denies: back pain, arthralgia Skin: denies: rash, lesions Neurological: denies: headache, weakness Physical Exam - Physical Exam Vital Signs: Vital Signs 08/17/18 22:38 Temperature 97.8 F Pulse Rate 98 H Respiratory 18 Rate Blood Pressure 125/78 O2 Sat by Pulse 99 Oximetry Physical Exam: GENERAL: The patient is well-developed well-nourished. HENT: Normocephalic. Atraumatic. Patient has moist mucous membranes. EYES: Extraocular motions are intact. NECK: Supple. Trachea is midline. CHEST/LUNGS: Clear to auscultation. There is no respiratory distress noted. HEART/CARDIOVASCULAR: Regular. There is no tachycardia. There is no murmur. ABDOMEN: Abdomen is soft, nontender. Patient has normal bowel sounds. There is no abdominal distention. SKIN: Skin is warm and dry. NEURO: The patient is awake, alert, and cooperative. The patient has no focal neurologic deficits. The patient has normal speech. MUSCULOSKELETAL: There is no tenderness or deformity. There is no limitation range of motion. There is no evidence of acute injury. RECTAL: No visible hemorrhoids or lesions seen. No gross blood. Stool appears negative on guaiac testing. ED Course Vital Signs 08/17/18 22:38 Temperature 97.8 F Pulse Rate 98 H Respiratory 18 Rate Blood Pressure 125/78 O2 Sat by Pulse 99 Oximetry ED Medical Decision Making - Lab Data Result diagrams: 08/17/18 22:37 08/17/18 22:37 - Radiology Data Radiology results: image reviewed interpreted by me: abdominal x-ray shows nonspecific nonobstructive bowel gas. - Medical Decision Making This patient presents to the emergency department with a complaint of some rectal bleeding that is a chronic issue for him but he says it was increased recently. On examination, there was no obvious hemorrhoids, lesions, gross bleeding and the stool was negative on guaiac testing. Abdominal x-ray appears to be nonspecific and nonobstructive. Patient's labs are unremarkable including a stable/normal hemoglobin. Vital signs stable throughout his ED course. We had a long conversation about the need for GI follow-up and possibly a colonoscopy in the near future. He was given a referral for [facility]. He will return to the ER with any worsening of his symptoms or any acute distress. - Differential Diagnosis hemorrhoids, malignancy, diverticulosis Critical Care Time: No Critical care attestation.: If time is entered above; I have spent that time in minutes in the direct care of this critically ill patient, excluding procedure time. ED Disposition Clinical Impression: Rectal bleeding Disposition: DC- TO HOME OR SELFCARE Is pt being admited?: No Condition: Stable Instructions: Rectal Bleeding (ED) Additional Instructions: Please follow-up with your primary care physician in the next few days. I am giving a referral for a local missile pad mechanic, Dr. Mohan, to follow up with regarding the rectal bleeding. Return to the emergency Department with any worsening of your symptoms or any acute distress. Referrals: BRENDAN MOHAN MD [Staff Physician] - 2-3 Days [facility] [Outside] - 2-3 Days Time of Disposition: 01:32
--- NOTE | 2018-08-18 01:18 | XRay Report ---
PROCEDURE: XR ABDOMEN 2V TECHNIQUE: Abdominal series, including supine and upright AP views. HISTORY: abd pain COMPARISONS: None . FINDINGS: Bowel gas pattern: Nonobstructive . Masses or calcifications: There are numerous vascular calcifications in the pelvis . Bony structures: No significant abnormality . Pneumoperitoneum: None . Other: No significant findings . IMPRESSION: No acute abnormality. This document is electronically signed by Jamila Taylor DO., August 18 2018 01:16:29 AM ET
[2018-08-18 02:07] VITALS: BP 139/81
== END 2018-08-18 02:05 | disposition home or self-care (01) ==
LOC: ED 21:27
DX: K62.5 Hemorrhage of anus and rectum (principal); I25.2 Old myocardial infarction; E11.9 Type 2 diabetes mellitus without complications; I48.91 Unspecified atrial fibrillation; Z95.1 Presence of aortocoronary bypass graft; Z79.899 Other long term (current) drug therapy; Z79.1 Long term (current) use of non-steroidal anti-inflammatories (NSAID)
CPT/HCPCS: 36415; 74019; 80053; 83690; 85025; 99284

== ENCOUNTER 2020-06-25 17:55 | Emergency (ER) | payer MEDICARE ==
[2020-06-25 20:37] VITALS: BP 116/68
--- NOTE | 2020-06-25 20:37 | Event Note ---
ED Screening Note ED Screening Note: n/v/d that occurred today +CP midsternal sharp pain left arm tingling generalized abd discomfort no fever no cough no sob no allergies to meds This initial assessment/diagnostic orders/clinical plan/treatment(s) is/are subject to change based on patients health status, clinical progression and re- assessment by fellow clinical providers in the ED. Further treatment and workup at subsequent clinical providers discretion. Patient/guardian urged not to elope from the ED as their condition may be serious if not clinically assessed and managed. Initial orders include: labs, EKG, CXR
[2020-06-25 21:00] LABS: Basophils % (Auto) 0.3 % (0.0-1.8); Eosinophils # (Auto) 0.2 K/mm3 (0.0-0.4); Eosinophils % (Auto) 1.9 % (0.0-4.3); Hematocrit 40.2 % (35.5-45.6); Hemoglobin 13.5 gm/dl (11.8-15.2); Lymphocytes % (Auto) 25.5 % (13.4-35.0); Mean Corpuscular HGB Conc 34 % (32-34); Mean Corpuscular Volume 88 fl (84-94); Monocytes # (Auto) 0.4 K/mm3 (0.0-0.8); Platelet Count 150 K/mm3 (140-440); Red Blood Count 4.55 M/mm3 (3.65-5.03); Red Cell Distribution Width 13.7 % (13.2-15.2)
--- NOTE | 2020-06-25 21:05 | XRay Report ---
CHEST 2 VIEWS INDICATION / CLINICAL INFORMATION: CP, n/v. COMPARISON: 06/15/2018 FINDINGS: SUPPORT DEVICES: None. HEART / MEDIASTINUM: No significant abnormality. LUNGS / PLEURA: No significant pulmonary or pleural abnormality. No pneumothorax. ADDITIONAL FINDINGS: No significant additional findings. IMPRESSION: 1. No acute findings. No significant interval change since 06/15/2018. Signer Name: Levi James MD Signed: 06/25/2020 9:00 PM Workstation Name: [id number]
[2020-06-25 21:19] LABS: Alanine Aminotransferase 8 units/L (7-56); Albumin 4.4 g/dL (3.9-5); BUN/Creatinine Ratio 23; Blood Urea Nitrogen 18 mg/dL (9-20); Calcium 9.3 mg/dL (8.4-10.2); Hemolysis Index 12
--- NOTE | 2020-06-25 23:38 | Emergency Department Report ---
ED Chest Pain HPI - General Chief Complaint: Nausea/Vomiting/Diarrhea Stated Complaint: CHEST PAIN Time Seen by Provider: 06/25/20 20:33 Source: patient Mode of arrival: Ambulatory Limitations: No Limitations - Related Data Home Medications Medication Instructions Recorded Confirmed Last Taken Citalopram [Celexa] 1 tab PO QAM 05/20/18 05/20/18 Unknown Divalproex ER [Depakote ER] 500 mg PO HS 05/20/18 05/20/18 Unknown OLANZapine [Zyprexa] 1 tab PO HS 05/20/18 05/20/18 Unknown Paliperidone Palmitate [Invega 273 mg IM QMONTH 05/20/18 05/20/18 Unknown Trinza] Previous Rx's Medication Instructions Recorded Last Taken Type Benztropine [Cogentin] 2 mg PO BID #60 05/21/18 Unknown Rx Pantoprazole [Protonix TAB] 40 mg PO QDAY #60 05/21/18 Unknown Rx Ciprofloxacin HCl [Cipro] 500 mg PO QDAY #5 tablet 05/24/18 Unknown Rx Ibuprofen [Motrin 600 MG tab] 600 mg PO Q8H PRN #15 tablet 05/24/18 Unknown Rx polyethylene glycoL 3350 [Miralax 17 gm PO QDAY #15 packet 05/24/18 Unknown Rx 3350] Allergies Allergy/AdvReac Type Severity Reaction Status Date / Time No Known Allergies Allergy Verified 05/20/18 20:59 Heart Score - HEART Score History: Slightly suspicious EKG: Normal Age: < 45 Risk factors: 1-2 risk factors Troponin: < normal limit HEART Score: 1 ED Review of Systems ROS: Stated complaint: CHEST PAIN Other details as noted in HPI Comment: All other systems reviewed and negative ED Past Medical Hx - Past Medical History Hx Heart Attack/AMI: Yes (2005 one stent) Hx Diabetes: Yes Hx Psychiatric Treatment: Yes (Bipolar, Schizophrenia, Anxiety) Additional medical history: Bipolar, developmental delay,AFIB - Surgical History Hx Coronary Stent: Yes Additional Surgical History: Left Knee - Social History Smoking Status: Never Smoker Substance Use Type: Alcohol - Medications Home Medications: Home Medications Medication Instructions Recorded Confirmed Last Taken Type Citalopram [Celexa] 1 tab PO QAM 05/20/18 05/20/18 Unknown History Divalproex ER [Depakote ER] 500 mg PO HS 05/20/18 05/20/18 Unknown History OLANZapine [Zyprexa] 1 tab PO HS 05/20/18 05/20/18 Unknown History Paliperidone Palmitate [Invega 273 mg IM QMONTH 05/20/18 05/20/18 Unknown History Trinza] Benztropine [Cogentin] 2 mg PO BID #60 05/21/18 05/20/18 Unknown Rx Pantoprazole [Protonix TAB] 40 mg PO QDAY #60 05/21/18 05/20/18 Unknown Rx Ciprofloxacin HCl [Cipro] 500 mg PO QDAY #5 tablet 05/24/18 Unknown Rx Ibuprofen [Motrin 600 MG tab] 600 mg PO Q8H PRN #15 tablet 05/24/18 Unknown Rx polyethylene glycoL 3350 [Miralax 17 gm PO QDAY #15 packet 05/24/18 Unknown Rx 3350] ED Physical Exam - General Limitations: No Limitations General appearance: alert, in no apparent distress - Head Head exam: Present: atraumatic, normocephalic - Eye Eye exam: Present: normal appearance - ENT ENT exam: Present: mucous membranes moist - Neck Neck exam: Present: normal inspection - Respiratory Respiratory exam: Present: normal lung sounds bilaterally. Absent: respiratory distress - Cardiovascular Cardiovascular Exam: Present: regular rate, normal rhythm. Absent: systolic murmur, diastolic murmur, rubs, gallop - GI/Abdominal GI/Abdominal exam: Present: soft, normal bowel sounds - Rectal Rectal exam: Present: deferred - Extremities Exam Extremities exam: Present: normal inspection - Back Exam Back exam: Present: normal inspection - Neurological Exam Neurological exam: Present: alert, oriented X3 - Psychiatric Psychiatric exam: Present: normal affect, normal mood - Skin Skin exam: Present: warm, dry, intact, normal color. Absent: rash ED Course Vital Signs 06/25/20 19:57 Temperature 98.2 F Pulse Rate 86 Respiratory 19 Rate Blood Pressure 116/68 O2 Sat by Pulse 97 Oximetry ESPINOZA score - Espinoza Score Age > 65: (0) No Aspirin use within the Past 7 Days: (0) No 3 or more CAD Risk Factors: (0) No 2 or more Angina events in past 24 hrs: (0) No Known CAD with more than 50% Stenosis: (0) No Elevated Cardiac Markers: (0) No ST Deviation Greater than 0.5mm: (0) No ESPINOZA Score: 0 ED Medical Decision Making - Lab Data Result diagrams: 06/25/20 20:41 06/25/20 20:41 Lab Results 06/25/20 06/25/20 06/25/20 Range/Units 20:41 20:41 23:51 WBC 8.0 (4.5-11.0) K/mm3 RBC 4.55 (3.65-5.03) M/mm3 Hgb 13.5 (11.8-15.2) gm/dl Hct 40.2 (35.5-45.6) % MCV 88 (84-94) fl MCH 30 (28-32) pg MCHC 34 (32-34) % RDW 13.7 (13.2-15.2) % Plt Count 150 (140-440) K/mm3 Lymph % (Auto) 25.5 (13.4-35.0) % [place] % (Auto) 5.0 (0.0-7.3) % Eos % (Auto) 1.9 (0.0-4.3) % Baso % (Auto) 0.3 (0.0-1.8) % Lymph # (Auto) 2.0 (1.2-5.4) K/mm3 [place] # (Auto) 0.4 (0.0-0.8) K/mm3 Eos # (Auto) 0.2 (0.0-0.4) K/mm3 Baso # (Auto) 0.0 (0.0-0.1) K/mm3 Seg Neutrophils % 67.3 (40.0-70.0) % Seg Neutrophils # 5.4 (1.8-7.7) K/mm3 Sodium 141 (137-145) mmol/L Potassium 5.2 H (3.6-5.0) mmol/L Chloride 104.7 (98-107) mmol/L Carbon Dioxide 27 (22-30) mmol/L Anion Gap 15 mmol/L BUN 18 (9-20) mg/dL Creatinine 0.8 (0.8-1.3) mg/dL Estimated GFR > 60 ml/min BUN/Creatinine Ratio 23 % Glucose 90 (75-100) mg/dL Calcium 9.3 (8.4-10.2) mg/dL Total Bilirubin 0.20 (0.1-1.2) mg/dL AST 13 (5-40) units/L ALT 8 (7-56) units/L Alkaline Phosphatase 47 (35-129) units/L Troponin T < 0.010 < 0.010 (0.00-0.029) ng/mL Total Protein 7.5 (6.3-8.2) g/dL Albumin 4.4 (3.9-5) g/dL Albumin/Globulin Ratio 1.4 % Lipase 32 (13-60) units/L - EKG Data EKG shows normal: sinus rhythm Rate: normal - EKG Data When compared to previous EKG there are: no significant change Interpretation: normal EKG - Radiology Data Radiology results: report reviewed [address] [place] [address] XRay Report Signed Patient: AZ DIAMOND MR#: [id number] [birth year] : 1980 Acct:[id number] Age/Sex: 40 / M ADM Date: 06/25/20 Loc: ED Attending Dr: Ordering Physician: SHAVON COCHRAN Date of Service: 06/25/20 Procedure(s): XR chest routine 2V Accession Number(s): [id number] cc: SHAVON COCHRAN Fluoro Time In Minutes: CHEST 2 VIEWS INDICATION / CLINICAL INFORMATION: CP, n/v. COMPARISON: 06/15/2018 FINDINGS: SUPPORT DEVICES: None. HEART / MEDIASTINUM: No significant abnormality. LUNGS / PLEURA: No significant pulmonary or pleural abnormality. No pneumothorax. ADDITIONAL FINDINGS: No significant additional findings. IMPRESSION: 1. No acute findings. No significant interval change since 06/15/2018. Signer Name: Levi Sotelo MD Signed: 06/25/2020 9:00 PM Workstation Name: [id number] Transcribed By: Dictated By: LEVI SOTELO Electronically Authenticated By: LEVI SOTELO Signed Date/Time: 06/25/202099 DD/ 58 TD/TT: Print - Medical Decision Making This patient presents with chest pain that is very unlikely angina or acute coronary syndrome. The emergency department evaluation has not identified any cause for suspicion that this chest pain has a cardiac etiology. Based on their history, EKG (which showed no evidence of ischemia or infarction) and imaging, i n addition to the patient's physical exam, I see no evidence at this time for a malignant etiology for the patient's chest pain. There is no acute evidence for pulmonary embolus, acute myocardial infarction, pneumothorax, Boerhaeve syndrome, cardiac tamponade, thoracic artery dissection, or any other emergent cardiac, pulmonary or aortic pathology. Given the low pre-test probability for cardiac etiology of chest pain and the absence of any sign of ischemia or infarction, discharge for outpatient follow-up and further evaluation is reasonable. I have explained to the patient that even though a cardiac problem is very unlikely, follow-up and further testing is required to reduce further the a lready small uncertainty that exists. Other life-threatening diagnoses have been considered. The patient understands the need to return immediately if their symptoms worsen or they develop any new symptoms, and not to engage in any significant exertional activity until follow-up is obtained. Critical care attestation.: If time is entered above; I have spent that time in minutes in the direct care of this critically ill patient, excluding procedure time. ED Disposition Condition: Stable Referrals: PRIMARY CARE, [Primary Care Provider] - 3-5 Days
--- NOTE | 2020-06-27 10:44 | Electrocardiograph Report ---
[facility] Test Date: 2020-06-25 Test Time: 20:55:15 Pat Name: AZ DIAMOND Department: Room: Gender: M Helper Teacher: EP : 1980 Requested By: ANDRÉS PAULA Order Number: [id number] Reading MD: Liz Watson Measurements Intervals [place] Rate: 71 P: 29 KS: 179 QRS: 16 QRSD: 86 T: 39 QT: 386 QTc: 419 Interpretive Statements Sinus rhythm Probable anteroseptal infarct, old No previous ECG available for comparison Electronically Signed On 06-27-2020 10:44:41 EDT by Liz Watson
== END 2020-06-26 01:47 | disposition home or self-care (01) ==
LOC: ED 17:55
DX: R07.9 Chest pain, unspecified (principal); F41.9 Anxiety disorder, unspecified; I25.2 Old myocardial infarction; F25.0 Schizoaffective disorder, bipolar type; E11.9 Type 2 diabetes mellitus without complications; I48.91 Unspecified atrial fibrillation; Z79.899 Other long term (current) drug therapy; Z98.890 Other specified postprocedural states
CPT/HCPCS: 36415; 71046; 80053; 83690; 84484; 85025; 93005

== ENCOUNTER 2020-06-28 21:17 | Emergency (ER) | payer MEDICARE ==
[2020-06-28 23:18] VITALS: BP 94/58
--- NOTE | 2020-06-29 00:03 | Emergency Department Report ---
ED Chest Pain HPI - General Chief Complaint: Chest Pain Stated Complaint: CHEST PAIN Time Seen by Provider: 06/28/20 23:50 Source: patient Mode of arrival: Stretcher Limitations: No Limitations - History of Present Illness Initial Comments: 40-year-old male with bipolar disorder and past medical history of diabetes, and CAD having had a heart attack couple years ago presents emerged department complaining chest pain. States he was here about a week or 2 ago and had a few evaluation Was negative felt symptoms coming and then to come back to be evaluated. Reports no hemoptysis, no hematemesis no hematochezia, no cough, congestion or coryza. -: days(s) Onset: during rest Severity: mild Quality: dull Consistency: constant Improves With: nothing Worsens With: nothing re: denies: nausea, vomting, diaphoresis, dyspnea, sense of impending doom Other Symptoms: denies: cough, fever, syncope, acid taste in mouth, leg swelling, palpitations, burping - Related Data Home Medications Medication Instructions Recorded Confirmed Last Taken Citalopram [Celexa] 1 tab PO QAM 05/20/18 05/20/18 Unknown Divalproex ER [Depakote ER] 500 mg PO HS 05/20/18 05/20/18 Unknown OLANZapine [Zyprexa] 1 tab PO HS 05/20/18 05/20/18 Unknown Paliperidone Palmitate [Invega 273 mg IM QMONTH 05/20/18 05/20/18 Unknown Trinza] Previous Rx's Medication Instructions Recorded Last Taken Type Benztropine [Cogentin] 2 mg PO BID #60 05/21/18 Unknown Rx Pantoprazole [Protonix TAB] 40 mg PO QDAY #60 05/21/18 Unknown Rx Ciprofloxacin HCl [Cipro] 500 mg PO QDAY #5 tablet 05/24/18 Unknown Rx Ibuprofen [Motrin 600 MG tab] 600 mg PO Q8H PRN #15 tablet 05/24/18 Unknown Rx polyethylene glycoL 3350 [Miralax 17 gm PO QDAY #15 packet 05/24/18 Unknown Rx 3350] Allergies Allergy/AdvReac Type Severity Reaction Status Date / Time No Known Allergies Allergy Verified 05/20/18 20:59 Heart Score - HEART Score History: Slightly suspicious EKG: Normal Age: < 45 Risk factors: > 3 risk factors or hx of atherosclerotic disease Troponin: < normal limit HEART Score: 2 - Critical Actions Critical Actions: 0-3 pts:0.9-1.7%risk of adverse cardiac event.Candidate for discharge ED Review of Systems ROS: Stated complaint: CHEST PAIN Other details as noted in HPI Comment: All other systems reviewed and negative ED Past Medical Hx - Past Medical History Previous Medical History?: Yes Hx Heart Attack/AMI: Yes (2005 one stent) Hx Diabetes: Yes Hx Psychiatric Treatment: Yes (Bipolar, Schizophrenia, Anxiety) Additional medical history: Bipolar, developmental delay,AFIB - Surgical History Past Surgical History?: Yes Hx Coronary Stent: Yes Additional Surgical History: Left Knee - Social History Smoking Status: Never Smoker Substance Use Type: None - Medications Home Medications: Home Medications Medication Instructions Recorded Confirmed Last Taken Type Citalopram [Celexa] 1 tab PO QAM 05/20/18 05/20/18 Unknown History Divalproex ER [Depakote ER] 500 mg PO HS 05/20/18 05/20/18 Unknown History OLANZapine [Zyprexa] 1 tab PO HS 05/20/18 05/20/18 Unknown History Paliperidone Palmitate [Invega 273 mg IM QMONTH 05/20/18 05/20/18 Unknown History Trinza] Benztropine [Cogentin] 2 mg PO BID #60 05/21/18 05/20/18 Unknown Rx Pantoprazole [Protonix TAB] 40 mg PO QDAY #60 05/21/18 05/20/18 Unknown Rx Ciprofloxacin HCl [Cipro] 500 mg PO QDAY #5 tablet 05/24/18 Unknown Rx Ibuprofen [Motrin 600 MG tab] 600 mg PO Q8H PRN #15 tablet 05/24/18 Unknown Rx polyethylene glycoL 3350 [Miralax 17 gm PO QDAY #15 packet 05/24/18 Unknown Rx 3350] ED Physical Exam - General Limitations: No Limitations General appearance: alert, in no apparent distress - Head Head exam: Present: atraumatic, normocephalic - Eye Eye exam: Present: normal appearance, PERRL, EOMI Pupils: Present: normal accommodation - ENT ENT exam: Present: mucous membranes moist - Neck Neck exam: Present: normal inspection - Respiratory Respiratory exam: Present: normal lung sounds bilaterally. Absent: respiratory distress - Cardiovascular Cardiovascular Exam: Present: regular rate, normal rhythm. Absent: systolic murmur, diastolic murmur, rubs, gallop - GI/Abdominal GI/Abdominal exam: Present: soft, normal bowel sounds - Rectal Rectal exam: Present: deferred - Extremities Exam Extremities exam: Present: normal inspection - Back Exam Back exam: Present: normal inspection - Neurological Exam Neurological exam: Present: alert, oriented X3 - Psychiatric Psychiatric exam: Present: normal affect, normal mood - Skin Skin exam: Present: warm, dry, intact, normal color. Absent: rash ED Course Vital Signs 06/28/20 23:13 Temperature 97.6 F Pulse Rate 67 Respiratory 18 Rate Blood Pressure 94/58 O2 Sat by Pulse 97 Oximetry TAYLOR score - Taylor Score Age > 65: (0) No Aspirin use within the Past 7 Days: (0) No 3 or more CAD Risk Factors: (0) No 2 or more Angina events in past 24 hrs: (0) No Known CAD with more than 50% Stenosis: (0) No Elevated Cardiac Markers: (0) No ST Deviation Greater than 0.5mm: (0) No TAYLOR Score: 0 ED Medical Decision Making - Lab Data Result diagrams: 06/28/20 23:56 06/28/20 23:56 Critical care attestation.: If time is entered above; I have spent that time in minutes in the direct care of this critically ill patient, excluding procedure time. ED Disposition Clinical Impression: Chest pain Disposition: DC-01 TO HOME OR SELFCARE Is pt being admited?: No Does the pt Need Aspirin: No Condition: Stable Instructions: Coronary Artery Disease, Male, Nonspecific Chest Pain, Adult Additional Instructions: Please be sure to follow-up with cardiology as we previously stated Referrals: MEHRDAD OSPINA MD [Staff Physician] - 3-5 Days [place] RENATA DE LA CRUZ MD [Primary Care Provider] - 3-5 Days
[2020-06-29 00:44] LABS: Basophils % (Auto) 0.3 % (0.0-1.8); Eosinophils # (Auto) 0.2 K/mm3 (0.0-0.4); Eosinophils % (Auto) 2.8 % (0.0-4.3); Hematocrit 39.1 % (35.5-45.6); Hemoglobin 13.4 gm/dl (11.8-15.2); Lymphocytes # (Auto) 2.7 K/mm3 (1.2-5.4); Lymphocytes % (Auto) 31.5 % (13.4-35.0); Mean Corpuscular HGB Conc 34 % (32-34); Mean Corpuscular Volume 88 fl (84-94); Monocytes # (Auto) 0.5 K/mm3 (0.0-0.8); Monocytes % (Auto) 6.1 % (0.0-7.3); Platelet Count 156 K/mm3 (140-440); Red Blood Count 4.46 M/mm3 (3.65-5.03); Red Cell Distribution Width 13.5 % (13.2-15.2)
--- NOTE | 2020-06-29 00:53 | XRay Report ---
CHEST 2 VIEWS INDICATION / CLINICAL INFORMATION: Chest Pain. COMPARISON: Chest radiograph 06/25/2020 FINDINGS: SUPPORT DEVICES: None. HEART / MEDIASTINUM: No significant abnormality. LUNGS / PLEURA: No significant pulmonary or pleural abnormality. No pneumothorax. ADDITIONAL FINDINGS: No significant additional findings. IMPRESSION: 1. No acute findings. Signer Name: Delma Roa MD Signed: 06/29/2020 12:48 AM Workstation Name: [id number]
[2020-06-29 01:08] LABS: Alanine Aminotransferase 9 units/L (7-56); Albumin 4.7 g/dL (3.9-5); BUN/Creatinine Ratio 31; Blood Urea Nitrogen 25 mg/dL (9-20); Calcium 9.5 mg/dL (8.4-10.2); Hemolysis Index 9
== END 2020-06-29 03:10 | disposition home or self-care (01) ==
LOC: ED 21:17
DX: R07.89 Other chest pain (principal); E11.9 Type 2 diabetes mellitus without complications; I25.2 Old myocardial infarction; F31.9 Bipolar disorder, unspecified; F20.9 Schizophrenia, unspecified; Z98.890 Other specified postprocedural states; Z79.1 Long term (current) use of non-steroidal anti-inflammatories (NSAID); Z79.899 Other long term (current) drug therapy
CPT/HCPCS: 36415; 71046; 80053; 83880; 84484; 85025; 93005

== ENCOUNTER 2020-07-03 16:46 | Emergency (ER) | payer MEDICARE ==
[2020-07-03] MEDS ORDERED: ASPIRIN 325 MG TAB PO ONE (17:57)
[2020-07-03 18:48] LABS: Alanine Aminotransferase 9 units/L (7-56); Albumin 4.6 g/dL (3.9-5); BUN/Creatinine Ratio 29; Blood Urea Nitrogen 26 mg/dL (9-20); Calcium 9.4 mg/dL (8.4-10.2); Hemolysis Index 6
[2020-07-03 18:57] LABS: Basophils % (Auto) 0.5 % (0.0-1.8); Eosinophils # (Auto) 0.1 K/mm3 (0.0-0.4); Eosinophils % (Auto) 1.6 % (0.0-4.3); Hematocrit 36.3 % (35.5-45.6); Hemoglobin 12.4 gm/dl (11.8-15.2); Lymphocytes # (Auto) 2.9 K/mm3 (1.2-5.4); Lymphocytes % (Auto) 32.5 % (13.4-35.0); Mean Corpuscular HGB Conc 34 % (32-34); Mean Corpuscular Volume 88 fl (84-94); Monocytes # (Auto) 0.8 K/mm3 (0.0-0.8); Monocytes % (Auto) 9.5 % (0.0-7.3); Platelet Count 164 K/mm3 (140-440); Red Blood Count 4.14 M/mm3 (3.65-5.03); Red Cell Distribution Width 13.7 % (13.2-15.2)
--- NOTE | 2020-07-03 19:07 | XRay Report ---
CHEST 2 VIEWS INDICATION / CLINICAL INFORMATION: chest pain. COMPARISON: 06/29/2020 FINDINGS: SUPPORT DEVICES: None. HEART / MEDIASTINUM: No significant abnormality. LUNGS / PLEURA: No significant pulmonary or pleural abnormality. No pneumothorax. ADDITIONAL FINDINGS: No significant additional findings. IMPRESSION: 1. No acute findings. Signer Name: Vishal Keller MD Signed: 07/03/2020 7:03 PM Workstation Name: [id number]
[2020-07-03 20:15] VITALS: BP 104/62
--- NOTE | 2020-07-03 21:14 | Emergency Department Report ---
ED Chest Pain HPI - General Chief Complaint: Chest Pain Stated Complaint: CHEST PAIN Time Seen by Provider: 07/03/20 20:15 Source: patient, EMS Mode of arrival: Ambulatory Limitations: No Limitations - History of Present Illness Initial Comments: Patient is a 40-year-old male presents emergency room complaints of substernal chest pain that began earlier today. He describes it as intermittent sharp pain. He states that radiates around his chest. He denies any radiation to his back or jaw. He denies any nausea, vomiting, diarrhea, diaphoresis, fever, cough, shortness of breath, leg swelling. He denies any recent travel, recent surgery, sick contact, recent immobilization. Past medical history of CAD with stent and anxiety. No allergies to medications. He endorses tobacco use. - Related Data Home Medications Medication Instructions Recorded Confirmed Last Taken Citalopram [Celexa] 1 tab PO QAM 05/20/18 05/20/18 Unknown Divalproex ER [Depakote ER] 500 mg PO HS 05/20/18 05/20/18 Unknown OLANZapine [Zyprexa] 1 tab PO HS 05/20/18 05/20/18 Unknown Paliperidone Palmitate [Invega 273 mg IM QMONTH 05/20/18 05/20/18 Unknown Trinza] Previous Rx's Medication Instructions Recorded Last Taken Type Benztropine [Cogentin] 2 mg PO BID #60 05/21/18 Unknown Rx Pantoprazole [Protonix TAB] 40 mg PO QDAY #60 05/21/18 Unknown Rx Ciprofloxacin HCl [Cipro] 500 mg PO QDAY #5 tablet 05/24/18 Unknown Rx Ibuprofen [Motrin 600 MG tab] 600 mg PO Q8H PRN #15 tablet 05/24/18 Unknown Rx polyethylene glycoL 3350 [Miralax 17 gm PO QDAY #15 packet 05/24/18 Unknown Rx 3350] Aspirin [Aspirin BABY CHEW TAB] 81 mg PO QDAY #30 tab.chew 07/03/20 Unknown Rx Allergies Allergy/AdvReac Type Severity Reaction Status Date / Time No Known Allergies Allergy Verified 07/03/20 17:49 Heart Score - HEART Score History: Slightly suspicious EKG: Normal Age: < 45 Risk factors: > 3 risk factors or hx of atherosclerotic disease Troponin: < normal limit HEART Score: 2 - EKG Read Time Time EKG Completed: 17:54 EKG Read Time: 18:00 ED Review of Systems ROS: Stated complaint: CHEST PAIN Other details as noted in HPI Comment: All other systems reviewed and negative ED Past Medical Hx - Past Medical History Hx Heart Attack/AMI: Yes (2005 one stent) Hx Diabetes: Yes Hx Psychiatric Treatment: Yes (Bipolar, Schizophrenia, Anxiety) Additional medical history: Bipolar, developmental delay,AFIB - Surgical History Hx Coronary Stent: Yes Additional Surgical History: Left Knee - Social History Smoking Status: Never Smoker Substance Use Type: None - Medications Home Medications: Home Medications Medication Instructions Recorded Confirmed Last Taken Type Citalopram [Celexa] 1 tab PO QAM 05/20/18 05/20/18 Unknown History Divalproex ER [Depakote ER] 500 mg PO HS 05/20/18 05/20/18 Unknown History OLANZapine [Zyprexa] 1 tab PO HS 05/20/18 05/20/18 Unknown History Paliperidone Palmitate [Invega 273 mg IM QMONTH 05/20/18 05/20/18 Unknown History Trinza] Benztropine [Cogentin] 2 mg PO BID #60 05/21/18 05/20/18 Unknown Rx Pantoprazole [Protonix TAB] 40 mg PO QDAY #60 05/21/18 05/20/18 Unknown Rx Ciprofloxacin HCl [Cipro] 500 mg PO QDAY #5 tablet 05/24/18 Unknown Rx Ibuprofen [Motrin 600 MG tab] 600 mg PO Q8H PRN #15 tablet 05/24/18 Unknown Rx polyethylene glycoL 3350 [Miralax 17 gm PO QDAY #15 packet 05/24/18 Unknown Rx 3350] Aspirin [Aspirin BABY CHEW TAB] 81 mg PO QDAY #30 tab.chew 07/03/20 Unknown Rx ED Physical Exam - General Limitations: No Limitations General appearance: alert, in no apparent distress - Head Head exam: Present: atraumatic, normocephalic - Eye Eye exam: Present: normal appearance - ENT ENT exam: Present: mucous membranes moist - Respiratory Respiratory exam: Present: normal lung sounds bilaterally. Absent: respiratory distress, wheezes, rales, rhonchi, stridor, chest wall tenderness, accessory muscle use, decreased breath sounds, prolonged expiratory - Cardiovascular Cardiovascular Exam: Present: regular rate, normal rhythm, normal heart sounds. Absent: systolic murmur, diastolic murmur, rubs, gallop - Neurological Exam Neurological exam: Present: alert, oriented X3 - Psychiatric Psychiatric exam: Present: normal affect, normal mood - Skin Skin exam: Present: warm, dry, intact ED Course Vital Signs 07/03/20 17:46 Temperature 98.8 F Pulse Rate 80 Respiratory 20 Rate Blood Pressure 104/62 O2 Sat by Pulse 96 Oximetry ESPINOZA score - Espinoza Score Age > 65: (0) No Aspirin use within the Past 7 Days: (0) No 3 or more CAD Risk Factors: (0) No 2 or more Angina events in past 24 hrs: (0) No Known CAD with more than 50% Stenosis: (0) No Elevated Cardiac Markers: (0) No ST Deviation Greater than 0.5mm: (0) No ESPINOZA Score: 0 ED Medical Decision Making - Lab Data Result diagrams: 07/03/20 18:03 07/03/20 18:03 Lab Results 07/03/20 07/03/20 07/03/20 Range/Units 18:03 18:03 20:23 WBC 8.8 (4.5-11.0) K/mm3 RBC 4.14 (3.65-5.03) M/mm3 Hgb 12.4 (11.8-15.2) gm/dl Hct 36.3 (35.5-45.6) % MCV 88 (84-94) fl MCH 30 (28-32) pg MCHC 34 (32-34) % RDW 13.7 (13.2-15.2) % Plt Count 164 (140-440) K/mm3 Lymph % (Auto) 32.5 (13.4-35.0) % [place] % (Auto) 9.5 H (0.0-7.3) % Eos % (Auto) 1.6 (0.0-4.3) % Baso % (Auto) 0.5 (0.0-1.8) % Lymph # (Auto) 2.9 (1.2-5.4) K/mm3 [place] # (Auto) 0.8 (0.0-0.8) K/mm3 Eos # (Auto) 0.1 (0.0-0.4) K/mm3 Baso # (Auto) 0.0 (0.0-0.1) K/mm3 Seg Neutrophils % 55.9 (40.0-70.0) % Seg Neutrophils # 4.9 (1.8-7.7) K/mm3 Sodium 140 (137-145) mmol/L Potassium 4.4 (3.6-5.0) mmol/L Chloride 100.8 (98-107) mmol/L Carbon Dioxide 32 H (22-30) mmol/L Anion Gap 12 mmol/L BUN 26 H (9-20) mg/dL Creatinine 0.9 (0.8-1.3) mg/dL Estimated GFR > 60 ml/min BUN/Creatinine Ratio 29 % Glucose 84 (75-100) mg/dL Calcium 9.4 (8.4-10.2) mg/dL Total Bilirubin 0.20 (0.1-1.2) mg/dL AST 14 (5-40) units/L ALT 9 (7-56) units/L Alkaline Phosphatase 50 (35-129) units/L Troponin T < 0.010 < 0.010 (0.00-0.029) ng/mL Total Protein 7.3 (6.3-8.2) g/dL Albumin 4.6 (3.9-5) g/dL Albumin/Globulin Ratio 1.7 % - EKG Data EKG shows normal: sinus rhythm, axis, intervals, ST-T waves Rate: normal - EKG Data 07/04/20 02:30 old anterior infarct no STEMI - Radiology Data Radiology results: report reviewed Ordering Physician: MARYANNE BREWSTER MD Date of Service: 07/03/20 Procedure(s): XR chest routine 2V Accession Number(s): [id number] cc: ED MD NEY Fluoro Time In Minutes: CHEST 2 VIEWS INDICATION / CLINICAL INFORMATION: chest pain. COMPARISON: 06/29/2020 FINDINGS: SUPPORT DEVICES: None. HEART / MEDIASTINUM: No significant abnormality. LUNGS / PLEURA: No significant pulmonary or pleural abnormality. No pneumothorax. ADDITIONAL FINDINGS: No significant additional findings. IMPRESSION: 1. No acute findings. Signer Name: Vishal Keller MD Signed: 07/03/2020 7:03 PM Workstation Name: [id number] Transcribed By: TL Dictated By: Vishal Keller MD Electronically Authenticated By: Vishal Keller MD Signed Date/Time: 07/03/201902 DD/ 01 TD/TT: Print Cancel - Medical Decision Making Patient is a 40-year-old male presents emergency room complaints of substernal chest pain that began earlier today. He describes it as intermittent sharp pain. He states that radiates around his chest. He denies any radiation to his back or jaw. He denies any nausea, vomiting, diarrhea, diaphoresis, fever, cou gh, shortness of breath, leg swelling. He denies any recent travel, recent surgery, sick contact, recent immobilization. Past medical history of CAD with stent and anxiety. No allergies to medications. He endorses tobacco use. Vitals are normal. 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 Labs are normal. Troponin is negative x2. Chest x-ray: 1. No acute findings. Heart score is 2, low risk for cardiac event. Do not suspect ACS. PERC criteria negative for PE, PE unlikely. Symptoms could be related to his anxiety. Patient will be is given prescription for low-dose aspirin and will be referred to outpatient cardiology. Advised patient Please take medication as prescribed. Follow-up with a photo cartographer. Follow-up with a primary care doctor. Return to emergency room immediately for any new or worsening symptoms. Patient had a stress test in 2019 which was within normal limits, stressed the importance of outpatient follow-up. Critical care attestation.: If time is entered above; I have spent that time in minutes in the direct care of this critically ill patient, excluding procedure time. ED Disposition Clinical Impression: Chest pain Qualifiers: Chest pain type: unspecified Qualified Code(s): R07.9 - Chest pain, unspecified Disposition: - TO HOME OR SELFCARE Is pt being admited?: No Does the pt Need Aspirin: Yes (given) Condition: Stable Instructions: Nonspecific Chest Pain, Adult Additional Instructions: Please take medication as prescribed. Follow-up with a photo cartographer. Follow-up with a primary care doctor. Return to emergency room immediately for any new or worsening symptoms. Prescriptions: Aspirin [Aspirin BABY CHEW TAB] 81 mg PO QDAY #30 tab.chew Referrals: KEL ARAYA MD [Staff Physician] - 2-3 Days ASHLEY LANDRY MD [Staff Physician] - 2-3 Days Time of Disposition: 21:30 Print Language: MONGOLIAN
[2020-07-03] MEDS ORDERED: ASPIRIN 325 MG TAB ONE (23:22)
--- NOTE | 2020-07-04 17:52 | Electrocardiograph Report ---
[facility] Test Date: 2020-07-03 Test Time: 17:54:58 Pat Name: [place] DIAMOND Department: Room: Gender: M [employer] Picker: ARA : [id number] Requested By: AMY COLE Order Number: [id number] Reading MD: Zaid Madison Measurements Intervals [place] Rate: 64 P: 26 MT: 188 QRS: 19 QRSD: 86 T: 26 QT: 400 QTc: 414 Interpretive Statements Sinus rhythm Anterior infarct, old Compared to ECG 06/28/2020 21:33:06 Myocardial infarct finding now present Electronically Signed On 07-04-2020 17:51:57 EDT by Zaid Madison
== END 2020-07-03 21:40 | disposition home or self-care (01) ==
LOC: ED 16:46
DX: R07.89 Other chest pain (principal); I25.2 Old myocardial infarction; E11.9 Type 2 diabetes mellitus without complications; F20.9 Schizophrenia, unspecified; Z98.890 Other specified postprocedural states; Z79.1 Long term (current) use of non-steroidal anti-inflammatories (NSAID); Z79.2 Long term (current) use of antibiotics; Z79.899 Other long term (current) drug therapy
CPT/HCPCS: 36415; 71046; 80053; 84484; 85025; 93005

== ENCOUNTER 2020-07-14 22:43 | Emergency (ER) | payer MEDICARE ==
[2020-07-14 23:44] VITALS: BP 101/63
--- NOTE | 2020-07-15 00:48 | Emergency Department Report ---
ED Lower Extremity HPI - General Chief Complaint: Extremity Injury, Lower Stated Complaint: LT KNEE PAIN Time Seen by Provider: 07/15/20 00:38 Source: patient, EMS Mode of arrival: Wheelchair Limitations: Physical Limitation - History of Present Illness Initial Comments: 40-year-old [place] resident presents emerged part with a pain of left knee pain following a ground-level trip and fall where he struck his knee on the ground resulting in pain swelling and difficulty ambulating due to the pain. This present time patient states he is unable to walk due to the amount of pain to the left knee. He reports a previous injury to this knee some months ago and thinks he may have been reaggravated. He reports no numbness, no tingling, no discoloration no redness no fevers chills or sweats. MD Complaint: knee injury Injury: Knee: Left Type of Injury: blunt Associated Symptoms: swelling, able to partially bear weight - Related Data Home Medications Medication Instructions Recorded Confirmed Last Taken Citalopram [Celexa] 1 tab PO QAM 05/20/18 05/20/18 Unknown Divalproex ER [Depakote ER] 500 mg PO HS 05/20/18 05/20/18 Unknown OLANZapine [Zyprexa] 1 tab PO HS 05/20/18 05/20/18 Unknown Paliperidone Palmitate [Invega 273 mg IM QMONTH 05/20/18 05/20/18 Unknown Trinza] Previous Rx's Medication Instructions Recorded Last Taken Type Benztropine [Cogentin] 2 mg PO BID #60 05/21/18 Unknown Rx Pantoprazole [Protonix TAB] 40 mg PO QDAY #60 05/21/18 Unknown Rx Ciprofloxacin HCl [Cipro] 500 mg PO QDAY #5 tablet 05/24/18 Unknown Rx Ibuprofen [Motrin 600 MG tab] 600 mg PO Q8H PRN #15 tablet 05/24/18 Unknown Rx polyethylene glycoL 3350 [Miralax 17 gm PO QDAY #15 packet 05/24/18 Unknown Rx 3350] Aspirin [Aspirin BABY CHEW TAB] 81 mg PO QDAY #30 tab.chew 07/03/20 Unknown Rx traMADoL [Ultram] 50 mg PO Q6HR PRN #14 tablet 07/15/20 Unknown Rx Allergies Allergy/AdvReac Type Severity Reaction Status Date / Time No Known Allergies Allergy Verified 05/05/21 17:49 ED Review of Systems ROS: Stated complaint: LT KNEE PAIN Other details as noted in HPI Comment: All other systems reviewed and negative ED Past Medical Hx - Past Medical History Previous Medical History?: Yes Hx Heart Attack/AMI: Yes (2005 one stent) Hx Diabetes: Yes Hx Psychiatric Treatment: Yes (Bipolar, Schizophrenia, Anxiety) Additional medical history: Bipolar, developmental delay,AFIB - Surgical History Past Surgical History?: Yes Hx Coronary Stent: Yes Additional Surgical History: Left Knee - Social History Smoking Status: Never Smoker Substance Use Type: Alcohol - Medications Home Medications: Home Medications Medication Instructions Recorded Confirmed Last Taken Type Citalopram [Celexa] 1 tab PO QAM 05/20/18 05/20/18 Unknown History Divalproex ER [Depakote ER] 500 mg PO HS 05/20/18 05/20/18 Unknown History OLANZapine [Zyprexa] 1 tab PO HS 05/20/18 05/20/18 Unknown History Paliperidone Palmitate [Invega 273 mg IM QMONTH 05/20/18 05/20/18 Unknown History Trinza] Benztropine [Cogentin] 2 mg PO BID #60 05/21/18 05/20/18 Unknown Rx Pantoprazole [Protonix TAB] 40 mg PO QDAY #60 05/21/18 05/20/18 Unknown Rx Ciprofloxacin HCl [Cipro] 500 mg PO QDAY #5 tablet 05/24/18 Unknown Rx Ibuprofen [Motrin 600 MG tab] 600 mg PO Q8H PRN #15 tablet 05/24/18 Unknown Rx polyethylene glycoL 3350 [Miralax 17 gm PO QDAY #15 packet 05/24/18 Unknown Rx 3350] Aspirin [Aspirin BABY CHEW TAB] 81 mg PO QDAY #30 tab.chew 07/03/20 Unknown Rx traMADoL [Ultram] 50 mg PO Q6HR PRN #14 tablet 07/15/20 Unknown Rx ED Physical Exam - General Limitations: Physical Limitation General appearance: alert, in no apparent distress - Head Head exam: Present: atraumatic, normocephalic - Eye Eye exam: Present: normal appearance - ENT ENT exam: Present: mucous membranes moist - Neck Neck exam: Present: normal inspection - Respiratory Respiratory exam: Present: normal lung sounds bilaterally. Absent: respiratory distress - Cardiovascular Cardiovascular Exam: Present: regular rate, normal rhythm. Absent: systolic murmur, diastolic murmur, rubs, gallop - GI/Abdominal GI/Abdominal exam: Present: soft, normal bowel sounds - Rectal Rectal exam: Present: deferred - Extremities Exam Extremities exam: Present: normal inspection, tenderness - Expanded Lower Extremity Exam Left Knee exam: Present: swelling (To the medial aspect tenderness with palpation along that line. Normal varus and valgus is noted although there is some discomfort when doing so. Drawer test appears to be normal there is some tenderness with laxity thing Eleanor's), pain/laxity with valgus, pain/laxity with varus. Absent: dislocation, erythema Lower Leg exam: Present: normal inspection Ankle exam: Present: normal inspection Foot/Toe exam: Present: normal inspection Neuro vascular tendon exam: Present: no vascular compromise - Back Exam Back exam: Present: normal inspection - Neurological Exam Neurological exam: Present: alert, oriented X3, CN II-XII intact - Psychiatric Psychiatric exam: Present: normal affect, normal mood - Skin Skin exam: Present: warm, dry, intact, normal color. Absent: rash ED Course Vital Signs 07/14/20 23:38 Temperature 98.4 F Pulse Rate 75 Respiratory 18 Rate Blood Pressure 101/63 O2 Sat by Pulse 96 Oximetry ED Lower Extremity MDM - Radiology Data Radiology results: report reviewed X-ray shows no acute processes Critical care attestation.: If time is entered above; I have spent that time in minutes in the direct care of this critically ill patient, excluding procedure time. ED Disposition Clinical Impression: Knee internal derangement Disposition: DC-01 TO HOME OR SELFCARE Is pt being admited?: No Does the pt Need Aspirin: No Condition: Stable Instructions: Knee Effusion, [id number], Semimembranosus Tendinitis, Knee Injection, How to Use a Knee Immobilizer Prescriptions: traMADoL [Ultram] 50 mg PO Q6HR PRN #14 tablet PRN Reason: Pain Referrals: SACHIN MCCULLOUGH MD [Staff Physician] - 3-5 Days
--- NOTE | 2020-07-15 01:20 | XRay Report ---
LEFT KNEE 3 VIEWS INDICATION / CLINICAL INFORMATION: Left knee pain after fall. COMPARISON: None available. FINDINGS: BONES and JOINT(S): No acute fracture or subluxation. No significant arthritis. SOFT TISSUES: No significant abnormality. ADDITIONAL FINDINGS: None. IMPRESSION: 1. No acute findings. Signer Name: Jostin Velez MD Signed: 07/15/2020 1:16 AM Workstation Name: [id number]
== END 2020-07-15 02:35 | disposition home or self-care (01) ==
LOC: ED 22:43
DX: M23.92 Unspecified internal derangement of left knee (principal); I25.2 Old myocardial infarction; E11.9 Type 2 diabetes mellitus without complications; F20.9 Schizophrenia, unspecified; Z98.890 Other specified postprocedural states; Z79.1 Long term (current) use of non-steroidal anti-inflammatories (NSAID); Z79.2 Long term (current) use of antibiotics; Z79.899 Other long term (current) drug therapy

== ENCOUNTER 2020-07-16 19:33 | Emergency (ER) | payer MEDICARE ==
[2020-07-16 22:15] LABS: Basophils # (Auto) 0.1 K/mm3 (0.0-0.1); Basophils % (Auto) 0.6 % (0.0-1.8); Eosinophils # (Auto) 0.1 K/mm3 (0.0-0.4); Eosinophils % (Auto) 1.1 % (0.0-4.3); Hematocrit 37.2 % (35.5-45.6); Hemoglobin 12.6 gm/dl (11.8-15.2); Lymphocytes # (Auto) 2.8 K/mm3 (1.2-5.4); Lymphocytes % (Auto) 32.5 % (13.4-35.0); Mean Corpuscular HGB Conc 34 % (32-34); Mean Corpuscular Volume 88 fl (84-94); Monocytes # (Auto) 0.5 K/mm3 (0.0-0.8); Monocytes % (Auto) 6.2 % (0.0-7.3); Platelet Count 142 K/mm3 (140-440); Red Blood Count 4.23 M/mm3 (3.65-5.03); Red Cell Distribution Width 13.9 % (13.2-15.2)
[2020-07-16 22:36] LABS: BUN/Creatinine Ratio 31; Blood Urea Nitrogen 25 mg/dL (9-20); Calcium 9.6 mg/dL (8.4-10.2); Hemolysis Index 5
[2020-07-17 00:11] LABS: Bilirubin,Urine NEG (Negative); Blood,Urine NEG (Negative); Color,Urine Yellow (Yellow); Mucus,Urine 3+ /HPF; Protein,Urine <15 mg/dL mg/dL (Negative)
[2020-07-17 00:17] LABS: Amphetamine Screen,Urine PRESUMPTIVE NEGATIVE; Benzodiazepines Screen,Urine PRESUMPTIVE NEGATIVE; Cannabinoid Screen,Urine PRESUMPTIVE POSITIVE; Cocaine Screen,Urine PRESUMPTIVE NEGATIVE; Methadone Screen,Urine PRESUMPTIVE NEGATIVE; Opiate Screen,Urine PRESUMPTIVE NEGATIVE
--- NOTE | 2020-07-17 01:20 | Emergency Department Report ---
ED Psych HPI - General Chief Complaint: Psych Stated Complaint: SUICIDAL/HEARING VOICES Time Seen by Provider: 07/17/20 01:11 Source: patient Mode of arrival: Stretcher - History of Present Illness Initial Comments: Patient is 40 years old male with history of schizophrenia and bipolar. Patient presented to the ER stating that he is hearing voices he is thinking about hurting himself by stabbing himself. Patient also stated that he has visual hallucination. Patient denied any homicidal ideation. MD Complaint: suicidal ideation, feels depressed -: days(s) Associated Psychiatric Symptoms: depression, suicidal ideation, auditory hallucinations, visual hallucinations History of same: Yes Quality: constant Associated Symptoms: denies other symptoms If Self Harm: admits thoughts of, has plan, self-inflicted trauma - Related Data Home Medications Medication Instructions Recorded Confirmed Last Taken Citalopram [Celexa] 1 tab PO QAM 05/20/18 05/20/18 Unknown Divalproex ER [Depakote ER] 500 mg PO HS 05/20/18 05/20/18 Unknown OLANZapine [Zyprexa] 1 tab PO HS 05/20/18 05/20/18 Unknown Paliperidone Palmitate [Invega 273 mg IM QMONTH 05/20/18 05/20/18 Unknown Trinza] Previous Rx's Medication Instructions Recorded Last Taken Type Benztropine [Cogentin] 2 mg PO BID #60 05/21/18 Unknown Rx Pantoprazole [Protonix TAB] 40 mg PO QDAY #60 05/21/18 Unknown Rx Ciprofloxacin HCl [Cipro] 500 mg PO QDAY #5 tablet 05/24/18 Unknown Rx Ibuprofen [Motrin 600 MG tab] 600 mg PO Q8H PRN #15 tablet 05/24/18 Unknown Rx polyethylene glycoL 3350 [Miralax 17 gm PO QDAY #15 packet 05/24/18 Unknown Rx 3350] Aspirin [Aspirin BABY CHEW TAB] 81 mg PO QDAY #30 tab.chew 07/03/20 Unknown Rx traMADoL [Ultram] 50 mg PO Q6HR PRN #14 tablet 07/15/20 Unknown Rx Allergies Allergy/AdvReac Type Severity Reaction Status Date / Time No Known Allergies Allergy Verified 07/03/20 17:49 ED Review of Systems ROS: Stated complaint: SUICIDAL/HEARING VOICES Other details as noted in HPI Comment: All other systems reviewed and negative Constitutional: denies: chills, fever Respiratory: denies: cough, shortness of breath, SOB with exertion Cardiovascular: denies: chest pain, palpitations Gastrointestinal: denies: abdominal pain, nausea, vomiting Musculoskeletal: denies: back pain Neurological: denies: headache, weakness, numbness, paresthesias, confusion ED Past Medical Hx - Past Medical History Hx Heart Attack/AMI: Yes (2005 one stent) Hx Diabetes: Yes Hx Psychiatric Treatment: Yes (Bipolar, Schizophrenia, Anxiety) Additional medical history: Bipolar, developmental delay,AFIB - Surgical History Hx Coronary Stent: Yes Additional Surgical History: Left Knee - Social History Smoking Status: Current Every Day Smoker - Medications Home Medications: Home Medications Medication Instructions Recorded Confirmed Last Taken Type Citalopram [Celexa] 1 tab PO QAM 05/20/18 05/20/18 Unknown History Divalproex ER [Depakote ER] 500 mg PO HS 05/20/18 05/20/18 Unknown History OLANZapine [Zyprexa] 1 tab PO HS 05/20/18 05/20/18 Unknown History Paliperidone Palmitate [Invega 273 mg IM QMONTH 05/20/18 05/20/18 Unknown History Trinza] Benztropine [Cogentin] 2 mg PO BID #60 05/21/18 05/20/18 Unknown Rx Pantoprazole [Protonix TAB] 40 mg PO QDAY #60 05/21/18 05/20/18 Unknown Rx Ciprofloxacin HCl [Cipro] 500 mg PO QDAY #5 tablet 05/24/18 Unknown Rx Ibuprofen [Motrin 600 MG tab] 600 mg PO Q8H PRN #15 tablet 05/24/18 Unknown Rx polyethylene glycoL 3350 [Miralax 17 gm PO QDAY #15 packet 05/24/18 Unknown Rx 3350] Aspirin [Aspirin BABY CHEW TAB] 81 mg PO QDAY #30 tab.chew 07/03/20 Unknown Rx traMADoL [Ultram] 50 mg PO Q6HR PRN #14 tablet 07/15/20 Unknown Rx ED Physical Exam - General Limitations: No Limitations General appearance: alert, in no apparent distress - Head Head exam: Present: atraumatic, normocephalic, normal inspection - Eye Eye exam: Present: normal appearance, PERRL - ENT ENT exam: Present: normal exam, normal orophraynx, mucous membranes moist - Neck Neck exam: Present: normal inspection, full ROM. Absent: tenderness, meningismus - Respiratory Respiratory exam: Present: normal lung sounds bilaterally - Cardiovascular Cardiovascular Exam: Present: regular rate, normal rhythm, normal heart sounds - GI/Abdominal GI/Abdominal exam: Present: soft, normal bowel sounds. Absent: distended, tenderness, guarding, rebound, rigid, organomegaly, mass, bruit, pulsatile mass, hernia - Extremities Exam Extremities exam: Present: normal inspection, full ROM, normal capillary refill - Back Exam Back exam: Present: normal inspection, full ROM. Absent: CVA tenderness (R), CVA tenderness (L) - Neurological Exam Neurological exam: Present: alert, oriented X3, CN II-XII intact - Psychiatric Psychiatric exam: Present: flat affect, suicidal ideation. Absent: manic, homicidal ideation - Skin Skin exam: Present: warm, intact, normal color ED Course Vital Signs 07/16/20 07/17/20 07/17/20 21:47 02:27 04:16 Temperature 98.3 F 97.5 F L Pulse Rate 71 64 Respiratory 18 18 18 Rate Blood Pressure 128/78 Blood Pressure 100/61 [Left] O2 Sat by Pulse 98 96 98 Oximetry 07/17/20 09:48 Temperature 97.9 F Pulse Rate 70 Respiratory 20 Rate Blood Pressure Blood Pressure 113/68 [Left] O2 Sat by Pulse 100 Oximetry ED Medical Decision Making - Lab Data Result diagrams: 07/16/20 21:50 07/16/20 21:50 Critical care attestation.: If time is entered above; I have spent that time in minutes in the direct care of this critically ill patient, excluding procedure time. ED Disposition Clinical Impression: Suicidal ideation Disposition: DC/TX-65 PSY HOSP/PSY UNIT Is pt being admited?: No Condition: Stable Referrals: PRIMARY CARE, [Primary Care Provider] - 3-5 Days
[2020-07-17 09:49] VITALS: BP 113/68
[2020-07-17] MEDS ORDERED: ACETAMINOPHEN 325 MG TAB PO PRN (11:17)
[2020-07-17] MEDS ORDERED: diphenhydrAMINE 25 MG CAP PO PRN (11:17)
--- NOTE | 2020-07-17 11:20 | Event Note ---
Date: 07/17/20 The patient was evaluated in the emergency department for symptoms described in the history of present illness. He/she was evaluated in the context of the global COVID-19 pandemic, which necessitated consideration that the patient might be at risk for infection with the virus that causes COVID-19. Institutional protocols and algorithms that pertain to the evaluation of patients at risk for COVID-19 are in a state of rapid change based on information released by regulatory bodies including the CDC and federal and state organizations. These policies and algorithms were followed during the patient's care in the emergency department. Please note that these policies, procedures and recommendations changed on a rapid basis. Patient resting comfortably, in stretcher, and in no acute distress. Laboratory studies, vital signs are reviewed and appreciated. Home medications reconciled. Psychiatric recommendations pending at this time. It appears that the patient was deemed medically clear on his initial ER evaluation. Nursing team has not articulated any concerns at this morning, patient resting comfortably in stretcher Vital Signs 07/16/20 07/17/20 07/17/20 21:47 02:27 04:16 Temperature 98.3 F 97.5 F L Pulse Rate 71 64 Respiratory 18 18 18 Rate Blood Pressure 128/78 Blood Pressure 100/61 [Left] O2 Sat by Pulse 98 96 98 Oximetry 07/17/20 09:48 Temperature 97.9 F Pulse Rate 70 Respiratory 20 Rate Blood Pressure Blood Pressure 113/68 [Left] O2 Sat by Pulse 100 Oximetry Lab Results 07/16/20 07/16/20 07/16/20 Range/Units 21:50 21:50 21:50 WBC 8.6 (4.5-11.0) K/mm3 RBC 4.23 (3.65-5.03) M/mm3 Hgb 12.6 (11.8-15.2) gm/dl Hct 37.2 (35.5-45.6) % MCV 88 (84-94) fl MCH 30 (28-32) pg MCHC 34 (32-34) % RDW 13.9 (13.2-15.2) % Plt Count 142 (140-440) K/mm3 Lymph % (Auto) 32.5 (13.4-35.0) % Grady % (Auto) 6.2 (0.0-7.3) % Eos % (Auto) 1.1 (0.0-4.3) % Baso % (Auto) 0.6 (0.0-1.8) % Lymph # (Auto) 2.8 (1.2-5.4) K/mm3 Grady # (Auto) 0.5 (0.0-0.8) K/mm3 Eos # (Auto) 0.1 (0.0-0.4) K/mm3 Baso # (Auto) 0.1 (0.0-0.1) K/mm3 Seg Neutrophils % 59.6 (40.0-70.0) % Seg Neutrophils # 5.2 (1.8-7.7) K/mm3 Sodium 140 (137-145) mmol/L Potassium 4.2 (3.6-5.0) mmol/L Chloride 101.3 (98-107) mmol/L Carbon Dioxide 31 H (22-30) mmol/L Anion Gap 12 mmol/L BUN 25 H (9-20) mg/dL Creatinine 0.8 (0.8-1.3) mg/dL Estimated GFR > 60 ml/min BUN/Creatinine Ratio 31 % Glucose 81 (75-100) mg/dL Calcium 9.6 (8.4-10.2) mg/dL Urine Color (Yellow) Urine Turbidity (Clear) Urine pH (5.0-7.0) Ur Specific [place] (1.003-1.030) Urine Protein (Negative) mg/dL Urine Glucose (UA) (Negative) mg/dL Urine Ketones (Negative) mg/dL Urine Blood (Negative) Urine Nitrite (Negative) Urine Bilirubin (Negative) Urine Urobilinogen (<2.0) mg/dL Ur Leukocyte Esterase (Negative) Urine WBC (Auto) (0.0-6.0) /HPF Urine RBC (Auto) (0.0-6.0) /HPF U Epithel Cells (Auto) (0-13.0) /HPF Urine Mucus /HPF Salicylates < 0.3 L (2.8-20.0) mg/dL Urine Opiates Screen Urine Methadone Screen Acetaminophen (10.0-30.0) ug/mL Ur Barbiturates Screen Ur Phencyclidine Scrn Ur Amphetamines Screen U Benzodiazepines Scrn Urine Cocaine Screen U Marijuana (THC) Screen Drugs of Abuse Note Plasma/Serum Alcohol (0-0.07) % 0507/16/20 07/16/20 Range/Units 21:50 21:50 Unknown WBC (4.5-11.0) K/mm3 RBC (3.65-5.03) M/mm3 Hgb (11.8-15.2) gm/dl Hct (35.5-45.6) % MCV (84-94) fl MCH (28-32) pg MCHC (32-34) % RDW (13.2-15.2) % Plt Count (140-440) K/mm3 Lymph % (Auto) (13.4-35.0) % Grady % (Auto) (0.0-7.3) % Eos % (Auto) (0.0-4.3) % Baso % (Auto) (0.0-1.8) % Lymph # (Auto) (1.2-5.4) K/mm3 Grady # (Auto) (0.0-0.8) K/mm3 Eos # (Auto) (0.0-0.4) K/mm3 Baso # (Auto) (0.0-0.1) K/mm3 Seg Neutrophils % (40.0-70.0) % Seg Neutrophils # (1.8-7.7) K/mm3 Sodium (137-145) mmol/L Potassium (3.6-5.0) mmol/L Chloride (98-107) mmol/L Carbon Dioxide (22-30) mmol/L Anion Gap mmol/L BUN (9-20) mg/dL Creatinine (0.8-1.3) mg/dL Estimated GFR ml/min BUN/Creatinine Ratio % Glucose (75-100) mg/dL Calcium (8.4-10.2) mg/dL Urine Color Yellow (Yellow) Urine Turbidity Clear (Clear) Urine pH 5.0 (5.0-7.0) Ur Specific [place] 1.028 (1.003-1.030) Urine Protein <15 mg/dl (Negative) mg/dL Urine Glucose (UA) Neg (Negative) mg/dL Urine Ketones 20 (Negative) mg/dL Urine Blood Neg (Negative) Urine Nitrite Neg (Negative) Urine Bilirubin Neg (Negative) Urine Urobilinogen 2.0 (<2.0) mg/dL Ur Leukocyte Esterase Neg (Negative) Urine WBC (Auto) 1.0 (0.0-6.0) /HPF Urine RBC (Auto) 1.0 (0.0-6.0) /HPF U Epithel Cells (Auto) < 1.0 (0-13.0) /HPF Urine Mucus 3+ /HPF Salicylates (2.8-20.0) mg/dL Urine Opiates Screen Urine Methadone Screen Acetaminophen 5.0 L (10.0-30.0) ug/mL Ur Barbiturates Screen Ur Phencyclidine Scrn Ur Amphetamines Screen U Benzodiazepines Scrn Urine Cocaine Screen U Marijuana (THC) Screen Drugs of Abuse Note Plasma/Serum Alcohol < 0.01 (0-0.07) % 07/16/20 Range/Units Unknown WBC (4.5-11.0) K/mm3 RBC (3.65-5.03) M/mm3 Hgb (11.8-15.2) gm/dl Hct (35.5-45.6) % MCV (84-94) fl MCH (28-32) pg MCHC (32-34) % RDW (13.2-15.2) % Plt Count (140-440) K/mm3 Lymph % (Auto) (13.4-35.0) % Grady % (Auto) (0.0-7.3) % Eos % (Auto) (0.0-4.3) % Baso % (Auto) (0.0-1.8) % Lymph # (Auto) (1.2-5.4) K/mm3 Grady # (Auto) (0.0-0.8) K/mm3 Eos # (Auto) (0.0-0.4) K/mm3 Baso # (Auto) (0.0-0.1) K/mm3 Seg Neutrophils % (40.0-70.0) % Seg Neutrophils # (1.8-7.7) K/mm3 Sodium (137-145) mmol/L Potassium (3.6-5.0) mmol/L Chloride (98-107) mmol/L Carbon Dioxide (22-30) mmol/L Anion Gap mmol/L BUN (9-20) mg/dL Creatinine (0.8-1.3) mg/dL Estimated GFR ml/min BUN/Creatinine Ratio % Glucose (75-100) mg/dL Calcium (8.4-10.2) mg/dL Urine Color (Yellow) Urine Turbidity (Clear) Urine pH (5.0-7.0) Ur Specific [place] (1.003-1.030) Urine Protein (Negative) mg/dL Urine Glucose (UA) (Negative) mg/dL Urine Ketones (Negative) mg/dL Urine Blood (Negative) Urine Nitrite (Negative) Urine Bilirubin (Negative) Urine Urobilinogen (<2.0) mg/dL Ur Leukocyte Esterase (Negative) Urine WBC (Auto) (0.0-6.0) /HPF Urine RBC (Auto) (0.0-6.0) /HPF U Epithel Cells (Auto) (0-13.0) /HPF Urine Mucus /HPF Salicylates (2.8-20.0) mg/dL Urine Opiates Screen Presumptive negative Urine Methadone Screen Presumptive negative Acetaminophen (10.0-30.0) ug/mL Ur Barbiturates Screen Presumptive positive Ur Phencyclidine Scrn Presumptive negative Ur Amphetamines Screen Presumptive negative U Benzodiazepines Scrn Presumptive negative Urine Cocaine Screen Presumptive negative U Marijuana (THC) Screen Presumptive positive Drugs of Abuse Note Disclamer Plasma/Serum Alcohol (0-0.07) %
[2020-07-17] MEDS ORDERED: LORazepam 2 MG/ML VIAL IM PRN (11:21)
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
[2020-07-17] MEDS ORDERED: ASPIRIN 81 MG TAB CHEW PO SCH (12:00)
[2020-07-18] MEDS ORDERED: PANTOPRAZOLE 20 MG TAB PO SCH (10:00)
[2020-07-18] MEDS ORDERED: SERTRALINE 50 MG TAB PO SCH (10:00)
== END 2020-07-17 17:40 ==
LOC: ED 19:33
DX: R45.851 Suicidal ideations (principal); F25.0 Schizoaffective disorder, bipolar type; I48.91 Unspecified atrial fibrillation; E11.9 Type 2 diabetes mellitus without complications; F41.9 Anxiety disorder, unspecified; I25.2 Old myocardial infarction; F17.200 Nicotine dependence, unspecified, uncomplicated; Z98.890 Other specified postprocedural states; Z20.822 Contact with and (suspected) exposure to COVID-19; Z79.899 Other long term (current) drug therapy
CPT/HCPCS: 36415; 80048; 80307; 81001; 85025; 99285; U0003; 80320; G0480

== ENCOUNTER 2020-08-03 13:11 | Emergency (ER) | payer MEDICARE ==
[2020-08-03] MEDS ORDERED: ALBUTEROL 2.5 MG/3 ML NEBU IH ONE (14:24)
[2020-08-03] MEDS ORDERED: IPRATROPIUM 0.02% NEBU 2.5 ML IH ONE (14:24)
--- NOTE | 2020-08-03 14:29 | Event Note ---
ED Screening Note Date of service: 08/03/20 Time: 14:25 ED Screening Note: 40-year-old male patient with history of asthma presents to the emergency department via EMS with complaints of shortness of breath, cough, and wheezing starting last night. Patient states symptoms are consistent with prior asthma exacerbations. Symptoms began after secondhand smoke exposure. Patient has never been hospitalized for asthma. He cannot recall the last time he was prescribed steroids for an asthma exacerbation. EMS administered breathing treatment en route. Currently, patient states his symptoms are unchanged as compared with his symptoms prior to EMS arrival. General: Awake, appropriately interactive, no acute distress. Neck: Supple. Full range of motion intact. Cardiovascular: Normal peripheral perfusion. Pulmonary: No respiratory distress. Good air movement. Trace scattered expiratory wheezing. No stridor. Skin: No apparent rashes or lesions. Neurological: No facial asymmetry. Speech is clear. Follows commands. Patient is alert and oriented. Musculoskeletal: Moves all four extremities spontaneously with normal range of motion. Psych: Cooperative. Appropriate mood and affect. I have greeted and performed a focused rapid initial assessment of this patient. A comprehensive ED assessment and evaluation of the patient, analysis of all test results, and completion of the medical decision-making process will be conducted by additional ED providers. This initial assessment/diagnostic orders/clinical plan/treatment(s) is/are subject to change based on patients health status, clinical progression and re-assessment. Further treatment and workup at subsequent clinical provider's discretion. Patient/guardian urged not to elope from the ED as their condition may be serious if not clinically assessed and managed.
--- NOTE | 2020-08-03 16:12 | Emergency Department Report ---
ED Asthma HPI - General Chief Complaint: Adult Asthma Stated Complaint: ASTHMA Time Seen by Provider: 08/03/20 15:44 Source: patient, EMS Mode of arrival: Ambulatory Limitations: No Limitations - History of Present Illness MD Complaint: wheezing -: Gradual Severity: mild Context: none known Associated Symptoms: none, dry cough - Related Data Current Asthma Therapy: inhaled bronchodilator (Out of medicine and on arrival some environmental irritants) Home Medications Medication Instructions Recorded Confirmed Last Taken Citalopram [Celexa] 1 tab PO QAM 05/20/18 05/20/18 Unknown Divalproex ER [Depakote ER] 500 mg PO HS 05/20/18 05/20/18 Unknown OLANZapine [Zyprexa] 1 tab PO HS 05/20/18 05/20/18 Unknown Paliperidone Palmitate [Invega 273 mg IM QMONTH 05/20/18 05/20/18 Unknown Trinza] Previous Rx's Medication Instructions Recorded Last Taken Type Benztropine [Cogentin] 2 mg PO BID #60 05/21/18 Unknown Rx Pantoprazole [Protonix TAB] 40 mg PO QDAY #60 05/21/18 Unknown Rx Ciprofloxacin HCl [Cipro] 500 mg PO QDAY #5 tablet 05/24/18 Unknown Rx Ibuprofen [Motrin 600 MG tab] 600 mg PO Q8H PRN #15 tablet 05/24/18 Unknown Rx polyethylene glycoL 3350 [Miralax 17 gm PO QDAY #15 packet 05/24/18 Unknown Rx 3350] Aspirin [Aspirin BABY CHEW TAB] 81 mg PO QDAY #30 tab.chew 07/03/20 Unknown Rx traMADoL [Ultram] 50 mg PO Q6HR PRN #14 tablet 07/15/20 Unknown Rx Albuterol Mdi (or & Nicu Only) 1 puff IH Q4-6H PRN #1 inha 08/03/20 Unknown Rx [ProAir HFA Inhaler] Montelukast [Singulair] 10 mg PO QPM #14 tablet 08/03/20 Unknown Rx predniSONE [Deltasone] 20 mg PO QDAY #5 tab 08/03/20 Unknown Rx Allergies Allergy/AdvReac Type Severity Reaction Status Date / Time No Known Allergies Allergy Verified 07/03/20 17:49 ED Review of Systems ROS: Stated complaint: ASTHMA Other details as noted in HPI Comment: All other systems reviewed and negative ED Past Medical Hx - Past Medical History Previous Medical History?: Yes Hx Heart Attack/AMI: Yes (2005 one stent) Hx Diabetes: Yes Hx Psychiatric Treatment: Yes (Bipolar, Schizophrenia, Anxiety) Additional medical history: Bipolar, developmental delay,AFIB - Surgical History Past Surgical History?: Yes Hx Coronary Stent: Yes Additional Surgical History: Left Knee - Social History Smoking Status: Current Every Day Smoker Substance Use Type: Alcohol, Marijuana, Methamphetamines - Medications Home Medications: Home Medications Medication Instructions Recorded Confirmed Last Taken Type Citalopram [Celexa] 1 tab PO QAM 05/20/18 05/20/18 Unknown History Divalproex ER [Depakote ER] 500 mg PO HS 05/20/18 05/20/18 Unknown History OLANZapine [Zyprexa] 1 tab PO HS 05/20/18 05/20/18 Unknown History Paliperidone Palmitate [Invega 273 mg IM QMONTH 05/20/18 05/20/18 Unknown History Trinza] Benztropine [Cogentin] 2 mg PO BID #60 05/21/18 05/20/18 Unknown Rx Pantoprazole [Protonix TAB] 40 mg PO QDAY #60 05/21/18 05/20/18 Unknown Rx Ciprofloxacin HCl [Cipro] 500 mg PO QDAY #5 tablet 05/24/18 Unknown Rx Ibuprofen [Motrin 600 MG tab] 600 mg PO Q8H PRN #15 tablet 05/24/18 Unknown Rx polyethylene glycoL 3350 [Miralax 17 gm PO QDAY #15 packet 05/24/18 Unknown Rx 3350] Aspirin [Aspirin BABY CHEW TAB] 81 mg PO QDAY #30 tab.chew 07/03/20 Unknown Rx traMADoL [Ultram] 50 mg PO Q6HR PRN #14 tablet 07/15/20 Unknown Rx Albuterol Mdi (or & Nicu Only) 1 puff IH Q4-6H PRN #1 inha 08/03/20 Unknown Rx [ProAir HFA Inhaler] Montelukast [Singulair] 10 mg PO QPM #14 tablet 08/03/20 Unknown Rx predniSONE [Deltasone] 20 mg PO QDAY #5 tab 08/03/20 Unknown Rx ED Physical Exam - General Limitations: No Limitations General appearance: alert, in no apparent distress - Head Head exam: Present: atraumatic, normocephalic - Eye Eye exam: Present: normal appearance, PERRL, EOMI - ENT ENT exam: Present: normal exam, mucous membranes moist - Neck Neck exam: Present: normal inspection - Respiratory Respiratory exam: Present: normal lung sounds bilaterally, wheezes. Absent: respiratory distress, rhonchi, stridor, chest wall tenderness, decreased breath sounds - Cardiovascular Cardiovascular Exam: Present: regular rate, normal rhythm. Absent: systolic murmur, diastolic murmur, rubs, gallop - GI/Abdominal GI/Abdominal exam: Present: soft, normal bowel sounds - Rectal Rectal exam: Present: deferred - Extremities Exam Extremities exam: Present: normal inspection - Back Exam Back exam: Present: normal inspection - Neurological Exam Neurological exam: Present: alert, oriented X3 - Psychiatric Psychiatric exam: Present: normal affect, normal mood - Skin Skin exam: Present: warm, dry, intact, normal color. Absent: rash ED Course Vital Signs 08/03/20 08/03/20 13:40 14:54 Temperature 98.2 F Pulse Rate 82 Pulse Rate [ 78 Posterior Bilateral Throughout] Respiratory 18 Rate Respiratory 18 Rate [Posterior Bilateral Throughout] Blood Pressure 118/80 O2 Sat by Pulse 98 Oximetry ED Medical Decision Making - Medical Decision Making No altered mental status, saddle respirations, belly breathing or other signs of impending ventilatory failure. No intubations or recent admissions to the hospital for asthma. Unlikely pneumonia, CHF, COPD, GERD Workup Review include a chest x-ray which was normal she also received steroids and albuterol Therapies: Prednisone 50 mg PO. Albuterol nebulizer Reassessment: Patient improved with albuterol and ipratropium in less than 3 hours. Disposition: Discharge home with return precautions. Advised to follow up with primary care physician within next 24-48 hours. Aside from this acute exacerbation patient has been well controlled on baseline home regimen. Rx short steroid course, albuterol, Singulair, Flovent Critical care attestation.: If time is entered above; I have spent that time in minutes in the direct care of this critically ill patient, excluding procedure time. ED Disposition Clinical Impression: Asthma Disposition: DC-01 TO HOME OR SELFCARE Is pt being admited?: No Does the pt Need Aspirin: No Condition: Stable Instructions: Asthma, Adult, Asthma (ED), Bronchospasm, Adult, How to Use a Metered Dose Inhaler, Cough, Adult, How to Use a Dry Powder Inhaler, [id number] Prescriptions: predniSONE [Deltasone] 20 mg PO QDAY #5 tab Albuterol Mdi (or & Nicu Only) [ProAir HFA Inhaler] 1 puff IH Q4-6H PRN #1 inha PRN Reason: Cough Montelukast [Singulair] 10 mg PO QPM #14 tablet Referrals: SHRUTHI BAILEY MD [Staff Physician] - 3-5 Days
[2020-08-03 16:56] VITALS: BP 116/72
== END 2020-08-03 16:55 | disposition home or self-care (01) ==
LOC: ED 13:11
DX: J45.909 Unspecified asthma, uncomplicated (principal); I25.2 Old myocardial infarction; E11.9 Type 2 diabetes mellitus without complications; F17.200 Nicotine dependence, unspecified, uncomplicated; F12.10 Cannabis abuse, uncomplicated; Z98.890 Other specified postprocedural states; Z79.1 Long term (current) use of non-steroidal anti-inflammatories (NSAID); Z79.2 Long term (current) use of antibiotics; Z79.899 Other long term (current) drug therapy
CPT/HCPCS: 94640; 94644

== ENCOUNTER 2020-08-07 18:28 | Emergency (ER) | payer MEDICARE ==
[2020-08-07 21:03] LABS: Basophils % (Auto) 0.2 % (0.0-1.8); Hematocrit 36.7 % (35.5-45.6); Hemoglobin 12.5 gm/dl (11.8-15.2); Lymphocytes # (Auto) 3.7 K/mm3 (1.2-5.4); Lymphocytes % (Auto) 28.1 % (13.4-35.0); Mean Corpuscular HGB Conc 34 % (32-34); Mean Corpuscular Volume 87 fl (84-94); Monocytes # (Auto) 0.7 K/mm3 (0.0-0.8); Monocytes % (Auto) 5.2 % (0.0-7.3); Platelet Count 228 K/mm3 (140-440); Red Cell Distribution Width 14.8 % (13.2-15.2)
[2020-08-07 21:16] LABS: Blood Urea Nitrogen 15 mg/dL (9-20); Calcium 9.2 mg/dL (8.4-10.2); Hemolysis Index 9
[2020-08-07 21:20] LABS: BUN/Creatinine Ratio 30
--- NOTE | 2020-08-07 21:36 | Emergency Department Report ---
HPI - General Chief Complaint: GI Bleed Time Seen by Provider: 08/07/20 21:16 - HPI HPI: Room 21 The patient is a 40-year-old male present with a chief complaint of hematemesis. Patient states he believes he has food poisoning. The patient states he was in the process of eating a hot dog when he immediately began to vomit. Patient states he noticed blood mixed with the flu. Patient also states he had 1 bowel movement and noticed blood on the tissue when wiping. Patient denies abdominal pain. Patient states she has had a similar episode of the same. 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 and states she last use approximately 1 week ago ED Past Medical Hx - Past Medical History Hx Heart Attack/AMI: Yes (2005 one stent) Hx Diabetes: Yes Hx Psychiatric Treatment: Yes (Bipolar, Schizophrenia, Anxiety) Additional medical history: Bipolar, developmental delay,AFIB - Surgical History Hx Coronary Stent: Yes Additional Surgical History: Left Knee - Family History Family history: no significant - Social History Smoking Status: Former Smoker (None x1 month) Substance Use Type: Alcohol (Occasional), Methamphetamines - Medications Home Medications: Home Medications Medication Instructions Recorded Confirmed Last Taken Type Citalopram [Celexa] 1 tab PO QAM 05/20/18 05/20/18 Unknown History Divalproex ER [Depakote ER] 500 mg PO HS 05/20/18 05/20/18 Unknown History OLANZapine [Zyprexa] 1 tab PO HS 05/20/18 05/20/18 Unknown History Paliperidone Palmitate [Invega 273 mg IM QMONTH 05/20/18 05/20/18 Unknown History Trinza] Benztropine [Cogentin] 2 mg PO BID #60 05/21/18 05/20/18 Unknown Rx Pantoprazole [Protonix TAB] 40 mg PO QDAY #60 05/21/18 05/20/18 Unknown Rx Ciprofloxacin HCl [Cipro] 500 mg PO QDAY #5 tablet 05/24/18 Unknown Rx Ibuprofen [Motrin 600 MG tab] 600 mg PO Q8H PRN #15 tablet 05/24/18 Unknown Rx polyethylene glycoL 3350 [Miralax 17 gm PO QDAY #15 packet 05/24/18 Unknown Rx 3350] Aspirin [Aspirin BABY CHEW TAB] 81 mg PO QDAY #30 tab.chew 07/03/20 Unknown Rx traMADoL [Ultram] 50 mg PO Q6HR PRN #14 tablet 07/15/20 Unknown Rx Albuterol Mdi (or & Nicu Only) 1 puff IH Q4-6H PRN #1 inha 08/03/20 Unknown Rx [ProAir HFA Inhaler] Montelukast [Singulair] 10 mg PO QPM #14 tablet 08/03/20 Unknown Rx predniSONE [Deltasone] 20 mg PO QDAY #5 tab 08/03/20 Unknown Rx Famotidine [Pepcid] 20 mg PO BID #30 tablet 08/07/20 Unknown Rx Ondansetron [Zofran ODT TAB] 8 mg PO Q8HR #20 tab.rapdis 08/07/20 Unknown Rx ED Review of Systems ROS: Stated complaint: VOMITING BLOOD Other details as noted in HPI Constitutional: no symptoms reported Eyes: denies: eye pain ENT: denies: throat pain Respiratory: no symptoms reported Cardiovascular: denies: chest pain Endocrine: no symptoms reported Gastrointestinal: nausea, vomiting, hematemesis, hematochezia. denies: abdominal pain Genitourinary: denies: dysuria Musculoskeletal: denies: back pain Neurological: denies: headache Physical Exam - Physical Exam Vital Signs: Vital Signs 08/07/20 20:35 Temperature 98.3 F Pulse Rate 72 Respiratory 18 Rate Blood Pressure 119/78 O2 Sat by Pulse 99 Oximetry Vital Signs 08/07/20 08/07/20 20:35 21:43 Temperature 98.3 F Pulse Rate 72 Pulse Rate [ 56 L Lying] Pulse Rate [ 76 Sitting] Pulse Rate [ 77 Standing] Respiratory 18 Rate Blood Pressure 119/78 Blood Pressure 117/76 [Lying] Blood Pressure 121/75 [Sitting] Blood Pressure 110/77 [Standing] O2 Sat by Pulse 99 Oximetry Physical Exam: GENERAL: The patient is well-developed well-nourished male lying on stretcher not appearing to be in acute distress. [] HEENT: Normocephalic. Atraumatic. Extraocular motions are intact. Patient has moist mucous membranes. NECK: Supple. Trachea midline CHEST/LUNGS: Clear to auscultation. There is no respiratory distress noted. HEART/CARDIOVASCULAR: Regular. There is no tachycardia. There is no gallop rub or murmur. ABDOMEN: Abdomen is soft, with mild lower abdominal discomfort to palpation. No rebound or guarding.. Patient has normal bowel sounds. There is no abdominal distention. SKIN: There is no rash. There is no edema. There is no diaphoresis. NEURO: The patient is awake, alert, and oriented. The patient is cooperative. The patient has no focal neurologic deficits. The patient has normal speech MUSCULOSKELETAL:There is no evidence of acute injury. RECTAL: Guaiac negative ED Course Vital Signs 08/07/20 20:35 Temperature 98.3 F Pulse Rate 72 Respiratory 18 Rate Blood Pressure 119/78 O2 Sat by Pulse 99 Oximetry ED Medical Decision Making - Lab Data Result diagrams: 08/07/20 20:49 08/07/20 20:49 Laboratory Tests 08/07/20 08/07/20 20:49 20:49 WBC 13.1 H RBC 4.20 Hgb 12.5 Hct 36.7 MCV 87 MCH 30 MCHC 34 RDW 14.8 Plt Count 228 Lymph % (Auto) 28.1 [place] % (Auto) 5.2 Eos % (Auto) 0.0 Baso % (Auto) 0.2 Lymph # (Auto) 3.7 [place] # (Auto) 0.7 Eos # (Auto) 0.0 Baso # (Auto) 0.0 Seg Neutrophils % 66.5 Seg Neutrophils # 8.7 H Sodium 141 Potassium 4.0 Chloride 104.4 Carbon Dioxide 28 Anion Gap 13 BUN 15 Creatinine 0.5 L Estimated GFR > 60 BUN/Creatinine Ratio 30 Glucose 86 Calcium 9.2 - Differential Diagnosis Gastritis, gastroenteritis, peptic ulcer disease, hemorrhoids, Critical care attestation.: If time is entered above; I have spent that time in minutes in the direct care of this critically ill patient, excluding procedure time. ED Disposition Clinical Impression: Gastritis, Nausea & vomiting Disposition: DC-01 TO HOME OR SELFCARE Is pt being admited?: No Does the pt Need Aspirin: No Condition: Stable Instructions: Nausea and Vomiting, Adult, Gastritis, Adult Additional Instructions: Return to the emergency department should you develop worsening symptoms, inability to tolerate food or liquids, high fever or any other concerns Prescriptions: Famotidine [Pepcid] 20 mg PO BID #30 tablet Ondansetron [Zofran ODT TAB] 8 mg PO Q8HR #20 tab.rapdis Referrals: BRENDAN MOHAN MD [Staff Physician] - 3-5 Days (Dr. Mohan is a spanish linguist. Please follow-up with him for further evaluation) Forms: Accompanied Note Time of Disposition: 22:38
[2020-08-07 22:55] VITALS: BP 117/68
== END 2020-08-07 22:53 | disposition home or self-care (01) ==
LOC: ED 18:28
DX: K29.70 Gastritis, unspecified, without bleeding (principal); R11.2 Nausea with vomiting, unspecified; I25.2 Old myocardial infarction; E11.9 Type 2 diabetes mellitus without complications; F25.0 Schizoaffective disorder, bipolar type; F15.90 Other stimulant use, unspecified, uncomplicated; F41.9 Anxiety disorder, unspecified; I48.91 Unspecified atrial fibrillation; Z79.899 Other long term (current) drug therapy; Z87.891 Personal history of nicotine dependence; Z98.890 Other specified postprocedural states
CPT/HCPCS: 36415; 80048; 82271; 85025

== ENCOUNTER 2020-08-09 23:13 | Emergency (ER) | payer MEDICARE ==
[2020-08-10 02:34] LABS: Basophils % (Auto) 0.3 % (0.0-1.8); Eosinophils # (Auto) 0.1 K/mm3 (0.0-0.4); Hematocrit 37.8 % (35.5-45.6); Lymphocytes # (Auto) 3.9 K/mm3 (1.2-5.4); Lymphocytes % (Auto) 27.4 % (13.4-35.0); Mean Corpuscular HGB Conc 34 % (32-34); Mean Corpuscular Volume 87 fl (84-94); Monocytes % (Auto) 6.9 % (0.0-7.3); Platelet Count 223 K/mm3 (140-440); Red Blood Count 4.36 M/mm3 (3.65-5.03); Red Cell Distribution Width 14.4 % (13.2-15.2)
[2020-08-10 02:59] LABS: Alanine Aminotransferase 19 units/L (7-56); Albumin 4.3 g/dL (3.9-5); Blood Urea Nitrogen 14 mg/dL (9-20); Calcium 9.3 mg/dL (8.4-10.2); Hemolysis Index 7
[2020-08-10 03:01] LABS: BUN/Creatinine Ratio 20
--- NOTE | 2020-08-10 03:28 | XRay Report ---
CHEST 2 VIEWS, 08/10/2020 INDICATION: Chest pain COMPARISON: Chest radiograph, 07/03/2020 FINDINGS: Support devices: None. Heart: The cardiac silhouette is normal in size. Lungs/pleura: The lungs are clear of focal airspace disease or significant pleural effusion. Additional findings: No significant acute abnormality. IMPRESSION: 1. No evidence of acute cardiopulmonary process. Signer Name: Nely Steele MD Signed: 08/10/2020 3:24 AM Workstation Name: [id number]
[2020-08-10] MEDS ORDERED: IBUPROFEN 400 MG TAB PO ONE (07:09)
[2020-08-10] MEDS ORDERED: FAMOTIDINE 20 MG TAB PO ONE (07:10)
--- NOTE | 2020-08-10 07:18 | Emergency Department Report ---
ED General Adult HPI - General Chief complaint: Chest Pain Stated complaint: Left-sided chest wall pain PUI?: No Time Seen by Provider: 08/10/20 06:07 Source: patient, RN notes reviewed, old records reviewed Mode of arrival: Stretcher Limitations: Other (Patient is a poor historian) - History of Present Illness Initial comments: The patient was evaluated in the emergency department for symptoms described in the history of present illness. He/she was evaluated in the context of the global COVID-19 pandemic, which necessitated consideration that the patient might be at risk for infection with the virus that causes COVID-19. Institutional protocols and algorithms that pertain to the evaluation of patients at risk for COVID-19 are in a state of rapid change based on information released by regulatory bodies including the CDC and federal and state organizations. These policies and algorithms were followed during the arabella max's care in the emergency department. Please note that these policies, procedures and recommendations changed on a rapid basis. Past medical history: Questionable coronary artery disease, possible stent, developmental delay, bipolar, reported diabetes on insulin, GERD. Negative nuclear stress test April 2018. Multiple negative troponins at this hospital over multiple years. The patient is a 40-year-old gentleman who presents to the ER today with a complaint of nontraumatic left-sided chest wall pain. This pain started last night. The pain does not radiate to the back, arms or neck. There is no vomiting, diaphoresis or exertional shortness of breath. The pain increases with palpation and decreases with rest. No travel, surgery, immobilization, posterior leg pain or leg swelling. No Covid symptoms. Reports compliance with aspirin therapy. Believes his cardiac catheterization was performed at [facility] in [facility], in 2018, or 2019. No additional complaints at this time. -: Sudden Location: chest Radiation: non-radiation Quality: aching Consistency: intermittent Improves with: rest Worsens with: other (Palpation) Associated Symptoms: denies other symptoms - Related Data Home Medications Medication Instructions Recorded Confirmed Last Taken Citalopram [Celexa] 1 tab PO QAM 05/20/18 05/20/18 Unknown Divalproex ER [Depakote ER] 500 mg PO HS 05/20/18 05/20/18 Unknown OLANZapine [Zyprexa] 1 tab PO HS 03/22/19 03/22/19 Unknown Paliperidone Palmitate [Invega 273 mg IM QMONTH 05/20/18 05/20/18 Unknown Trinza] Previous Rx's Medication Instructions Recorded Last Taken Type Benztropine [Cogentin] 2 mg PO BID #60 05/21/18 Unknown Rx Pantoprazole [Protonix TAB] 40 mg PO QDAY #60 05/21/18 Unknown Rx Ciprofloxacin HCl [Cipro] 500 mg PO QDAY #5 tablet 05/24/18 Unknown Rx Ibuprofen [Motrin 600 MG tab] 600 mg PO Q8H PRN #15 tablet 05/24/18 Unknown Rx polyethylene glycoL 3350 [Miralax 17 gm PO QDAY #15 packet 05/24/18 Unknown Rx 3350] Aspirin [Aspirin BABY CHEW TAB] 81 mg PO QDAY #30 tab.chew 07/03/20 Unknown Rx traMADoL [Ultram] 50 mg PO Q6HR PRN #14 tablet 07/15/20 Unknown Rx Albuterol Mdi (or & Nicu Only) 1 puff IH Q4-6H PRN #1 inha 08/03/20 Unknown Rx [ProAir HFA Inhaler] Montelukast [Singulair] 10 mg PO QPM #14 tablet 08/03/20 Unknown Rx predniSONE [Deltasone] 20 mg PO QDAY #5 tab 08/03/20 Unknown Rx Famotidine [Pepcid] 20 mg PO BID #30 tablet 08/07/20 Unknown Rx Ondansetron [Zofran ODT TAB] 8 mg PO Q8HR #20 tab.rapdis 08/07/20 Unknown Rx Allergies Allergy/AdvReac Type Severity Reaction Status Date / Time No Known Allergies Allergy Verified 07/03/20 17:49 ED Review of Systems ROS: Stated complaint: CHEST PAIN Other details as noted in HPI Comment: All other systems reviewed and negative Cardiovascular: chest pain (Chest wall pain) ED Past Medical Hx - Past Medical History Previous Medical History?: Yes Hx Heart Attack/AMI: Yes (2005 one stent) Hx Diabetes: Yes Hx Psychiatric Treatment: Yes (Bipolar, Schizophrenia, Anxiety) Additional medical history: Bipolar, developmental delay,AFIB - Surgical History Past Surgical History?: Yes Hx Coronary Stent: Yes Additional Surgical History: Left Knee - Social History Smoking Status: Former Smoker Substance Use Type: Alcohol, Methamphetamines - Medications Home Medications: Home Medications Medication Instructions Recorded Confirmed Last Taken Type Citalopram [Celexa] 1 tab PO QAM 05/20/18 05/20/18 Unknown History Divalproex ER [Depakote ER] 500 mg PO HS 05/20/18 05/20/18 Unknown History OLANZapine [Zyprexa] 1 tab PO HS 05/20/18 05/20/18 Unknown History Paliperidone Palmitate [Invega 273 mg IM QMONTH 05/20/18 05/20/18 Unknown History Trinza] Benztropine [Cogentin] 2 mg PO BID #60 05/21/18 05/20/18 Unknown Rx Pantoprazole [Protonix TAB] 40 mg PO QDAY #60 05/21/18 05/20/18 Unknown Rx Ciprofloxacin HCl [Cipro] 500 mg PO QDAY #5 tablet 05/24/18 Unknown Rx Ibuprofen [Motrin 600 MG tab] 600 mg PO Q8H PRN #15 tablet 05/24/18 Unknown Rx polyethylene glycoL 3350 [Miralax 17 gm PO QDAY #15 packet 05/24/18 Unknown Rx 3350] Aspirin [Aspirin BABY CHEW TAB] 81 mg PO QDAY #30 tab.chew 07/03/20 Unknown Rx traMADoL [Ultram] 50 mg PO Q6HR PRN #14 tablet 07/15/20 Unknown Rx Albuterol Mdi (or & Nicu Only) 1 puff IH Q4-6H PRN #1 inha 08/03/20 Unknown Rx [ProAir HFA Inhaler] Montelukast [Singulair] 10 mg PO QPM #14 tablet 08/03/20 Unknown Rx predniSONE [Deltasone] 20 mg PO QDAY #5 tab 08/03/20 Unknown Rx Famotidine [Pepcid] 20 mg PO BID #30 tablet 08/07/20 Unknown Rx Ondansetron [Zofran ODT TAB] 8 mg PO Q8HR #20 tab.rapdis 08/07/20 Unknown Rx ED Physical Exam - General Limitations: No Limitations General appearance: alert, in no apparent distress - Head Head exam: Present: atraumatic, normocephalic - Eye Eye exam: Present: normal appearance, EOMI. Absent: nystagmus - ENT ENT exam: Present: normal exam, normal orophraynx, mucous membranes moist, normal external ear exam - Neck Neck exam: Present: normal inspection, full ROM. Absent: tenderness, me ningismus - Respiratory Respiratory exam: Present: normal lung sounds bilaterally, chest wall tenderness. Absent: respiratory distress, wheezes, rales, rhonchi, stridor - Cardiovascular Cardiovascular Exam: Present: regular rate, normal rhythm, normal heart sounds. Absent: bradycardia, tachycardia, irregular rhythm, systolic murmur, diastolic murmur, rubs, gallop - GI/Abdominal GI/Abdominal exam: Present: soft, normal bowel sounds. Absent: distended, tenderness, guarding, rebound, rigid, pulsatile mass - Rectal Rectal exam: Present: deferred - Extremities Exam Extremities exam: Present: normal inspection, full ROM, other (2+ pulses noted in the bilateral upper and lower extremities. There is no palpable cord. negative Homans sign. Muscular compartments are soft. The pelvis is stable.). Absent: pedal edema, calf tenderness - Back Exam Back exam: Present: normal inspection. Absent: tenderness, CVA tenderness (R), CVA tenderness (L), paraspinal tenderness, vertebral tenderness - Neurological Exam Neurological exam: Present: alert, other (No facial droop. Tongue midline. Extraocular movements intact bilaterally. Facial sensation intact to light touch in V1, V2, V3 distribution bilaterally. 5 and a 5 strength in 4 extremities. Sensation intact to light touch in 4 extremities.). Absent: motor sensory deficit - Psychiatric Psychiatric exam: Present: flat affect - Skin Skin exam: Present: warm, dry, intact, normal color. Absent: rash ED Course Vital Signs 08/10/20 08/10/20 08/10/20 02:09 02:12 07:31 Temperature 94.8 F L 98.4 F Pulse Rate 82 Respiratory 16 Rate Blood Pressure 115/75 Blood Pressure [Left] O2 Sat by Pulse 100 Oximetry O2 Sat by Pulse 99 Oximetry [ Digit-Finger] 08/10/20 10:41 Temperature 98.3 F Pulse Rate 87 Respiratory 13 Rate Blood Pressure Blood Pressure 112/73 [Left] O2 Sat by Pulse 100 Oximetry O2 Sat by Pulse Oximetry [ Digit-Finger] - Reevaluation(s) Reevaluation #1: 08/10/20 07:18 Differential diagnosis, including but not limited to: GERD, gastritis, hiatal hernia, costochondritis, pulmonary embolism, coronary artery disease/myocardial infarction Assessment and plan: 40-year-old gentleman, who was afebrile, with reassuring vital signs, in no acute distress, EKG appears to be mostly unchanged when shannon red to prior, with the exception of negatively deflected aVL QRS complex, and borderline rightward axis deviation. Suspicious for lead malposition. Lateral leads appear to be unchanged. Troponin negative x1. PERC negative, no pulmonary embolism or DVT risk factors, low risk by Wells criteria. Chest wall pain is reproducible. Repeat troponin, repeat EKG pending. Repeat vital signs pending. Reassess after acquisition of additional data points. 08/10/20 07:31 EKG #2 is unchanged when compared to prior EKG. Initial EKG obtained this morning most likely an error, given lead malposition. EKG #2, interpreted at 02:05 AM Sinus rhythm, 65 bpm. Normal axis. Normal intervals. Poor R wave progression. Unchanged from previous EKG. Not a STEMI. 08/10/20 11:12 Troponin negative x2. EKG unchanged from prior EKG.. Laboratory studies unremarkable. On multiple repeat evaluations, patient resting comfortably in stretcher at this time, and in no acute distress. He is suitable for discharge with outpatient follow-up. - Pulse Oximetry Interpretation Digit-Finger Initial Pulse Oximetry Readin O2 Sat by Pulse Oximetry: 99 Actions Taken: none ED Medical Decision Making - Lab Data Result diagrams: 08/10/20 02:24 08/10/20 02:24 Vital Signs 08/10/20 08/10/20 02:09 02:12 Temperature 94.8 F L 98.4 F Pulse Rate 82 Respiratory 16 Rate Blood Pressure 115/75 O2 Sat by Pulse 100 Oximetry Lab Results 08/10/20 08/10/20 Range/Units 02:24 02:24 WBC 14.1 H (4.5-11.0) K/mm3 RBC 4.36 (3.65-5.03) M/mm3 Hgb 13.0 (11.8-15.2) gm/dl Hct 37.8 (35.5-45.6) % MCV 87 (84-94) fl MCH 30 (28-32) pg MCHC 34 (32-34) % RDW 14.4 (13.2-15.2) % Plt Count 223 (140-440) K/mm3 Lymph % (Auto) 27.4 (13.4-35.0) % Garrard % (Auto) 6.9 (0.0-7.3) % Eos % (Auto) 1.0 (0.0-4.3) % Baso % (Auto) 0.3 (0.0-1.8) % Lymph # (Auto) 3.9 (1.2-5.4) K/mm3 [place]arrard # (Auto) 1.0 H (0.0-0.8) K/mm3 Eos # (Auto) 0.1 (0.0-0.4) K/mm3 Baso # (Auto) 0.0 (0.0-0.1) K/mm3 Seg Neutrophils % 64.4 (40.0-70.0) % Seg Neutrophils # 9.0 H (1.8-7.7) K/mm3 Sodium 144 (137-145) mmol/L Potassium 4.0 (3.6-5.0) mmol/L Chloride 104.5 (98-107) mmol/L Carbon Dioxide 32 H (22-30) mmol/L Anion Gap 12 mmol/L BUN 14 (9-20) mg/dL Creatinine 0.7 L (0.8-1.3) mg/dL Estimated GFR > 60 ml/min BUN/Creatinine Ratio 20 % Glucose 93 (75-100) mg/dL Calcium 9.3 (8.4-10.2) mg/dL Total Bilirubin 0.20 (0.1-1.2) mg/dL AST 15 (5-40) units/L ALT 19 (7-56) units/L Alkaline Phosphatase 57 (35-129) units/L Troponin T < 0.010 (0.00-0.029) ng/mL Total Protein 6.6 (6.3-8.2) g/dL Albumin 4.3 (3.9-5) g/dL Albumin/Globulin Ratio 1.9 % - EKG Data -: EKG Interpreted by Sc EKG shows normal: sinus rhythm Rate: normal - EKG Data 08/10/20 07:17 EKG #1, interpreted at 02: 0 5 AM Sinus rhythm, 65 bpm. There is borderline rightward axis deviation. There is poor R wave progression. The intervals are within normal limits. This is an abnormal EKG. This is not a STEMI. With the exception of borderline rightward axis deviation lead I, this EKG is unchanged from prior. - Radiology Data Radiology results: report reviewed, image reviewed [facility] [address] [place] [address] XRay Report Signed Patient: AZ DIAMOND MR#: [id number] : 1980 Acct:[id number] Age/Sex: 40 / M ADM Date: 08/09/20 Loc: ED Attending Dr: Ordering Physician: JUDY BRUCE MD Date of Service: 08/10/20 Procedure(s): XR chest routine 2V Accession Number(s): [id number] cc: JUDY BRUCE MD Fluoro Time In Minutes: CHEST 2 VIEWS, 08/10/2020 INDICATION: Chest pain COMPARISON: Chest rad iograph, 07/03/2020 FINDINGS: Support devices: None. Heart: The cardiac silhouette is normal in size. Lungs/pleura: The lungs are clear of focal airspace disease or significant pleural effusion. Additional findings: No significant acute abnormality. IMPRESSION: 1. No evidence of acute cardiopulmonary process. Signer Name: Nely Steele MD Signed: 08/10/2020 3:24 AM Workstation Name: [id number] Transcribed By: EB Dictated By: Nely Steele MD Electronically Authenticated By: Nely Steele MD Signed Date/Time: 08/10/20323 DD/ 2 Critical care attestation.: If time is entered above; I have spent that time in minutes in the direct care of this critically ill patient, excluding procedure time. ED Disposition Clinical Impression: Chest wall pain Disposition: DC-01 TO HOME OR SELFCARE Is pt being admited?: No Does the pt Need Aspirin: No Condition: Good Instructions: Nonspecific Chest Pain, Adult, Chest Wall Pain Additional Instructions: Please avoid consumption of heavy and spicy foods, tobacco, smoke products and alcohol. Patient may take [id number] ibuprofen, 400 mg by mouth, with food, every 6 hours as needed for pain, alternating with Pepcid/famotidine, 20 mg, once every 12-24 hours, alternating with acetaminophen, 650 mg by mouth, every 4-6 hours as needed for pain, maximum daily dose to not exceed 3 g per 24 hours. Recommend avoidance of heavy lifting, strenuous physical activity, rest, ice, compression and elevation of affected chest wall pain, and please follow-up with an outpatient primary care doctor or head librarian within the next 3 to 5 days. For the patient's convenience, a number of local primary care docto r/head librarian have been listed. The patient may follow-up with any of these at his convenience. Please return to the emergency room right away with new pain, worsened pain, migration of pain, projectile vomiting, change in mental status, confusion, inability to tolerate liquid feeds, new, worsened or different symptoms not present on the initial emergency room evaluation. Referrals: ASHLEY LANDRY MD [Staff Physician] - 3-5 Days CAMERON THOMPSON MD [Staff Physician] - 3-5 Days Heart Score - HEART Score History: Slightly suspicious EKG: Non-specific Age: < 45 Risk factors: 1-2 risk factors Troponin: < normal limit HEART Score: 2 - EKG Read Time Time EKG Completed: 02:03 EKG Read Time: 02:05 - Critical Actions Critical Actions: 0-3 pts:0.9-1.7%risk of adverse cardiac event.Candidate for discharge
[2020-08-10 08:45] LABS: INR 0.93 (0.87-1.13)
[2020-08-10 10:42] VITALS: BP 112/73
--- NOTE | 2020-08-15 12:43 | Electrocardiograph Report ---
[facility] Test Date: 2020-08-10 Test Time: 02:03:12 Pat Name: AZ DIAMOND Department: Room: Gender: M Char Belt Operator: : 1980 Requested By: JUDY BRUCE Order Number: [id number] Reading MD: Liz Watson Measurements Intervals [place] Rate: 65 P: 37 MA: 183 QRS: 87 QRSD: 94 T: 41 QT: 385 QTc: 401 Interpretive Statements Sinus rhythm Poor R wave progression Compared to ECG 07/03/2020 17:54:58 No significant changes Electronically Signed On 08-15-2020 12:43:20 EDT by Liz Watson
--- NOTE | 2020-08-15 12:45 | Electrocardiograph Report ---
[facility] Test Date: 2020-08-10 Test Time: 07:25:04 Pat Name: AZ DIAMOND Department: Room: Gender: M Mri Specialist: RODDY : 1980 Requested By: KRIS HOPKINS Order Number: [id number] Reading MD: Liz Watson Measurements Intervals [place] Rate: 65 P: 2 ID: [id number] QRS: 28 QRSD: 83 T: 43 QT: 375 QTc: 391 Interpretive Statements Sinus rhythm Probable anteroseptal infarct, old Compared to ECG 07/03/2020 17:54:58 No significant changes Electronically Signed On 08-15-2020 12:44:58 EDT by Liz Watson
== END 2020-08-10 12:42 | disposition home or self-care (01) ==
LOC: ED 23:13
DX: R07.89 Other chest pain (principal); I25.2 Old myocardial infarction; E11.9 Type 2 diabetes mellitus without complications; Z98.890 Other specified postprocedural states; Z87.891 Personal history of nicotine dependence; Z79.1 Long term (current) use of non-steroidal anti-inflammatories (NSAID); Z79.899 Other long term (current) drug therapy
CPT/HCPCS: 36415; 71046; 80053; 80320; 82550; 83735; 84484; 85025; 85610; 93005; G0480

== ENCOUNTER 2020-11-10 21:34 | Emergency (ER) | payer MEDICARE ==
--- NOTE | 2020-11-10 23:29 | Emergency Department Report ---
ED Anxiety HPI - General Chief Complaint: Anxiety Stated Complaint: CHEST PAIN Time Seen by Provider: 11/10/20 23:12 Source: patient, EMS Mode of arrival: Stretcher - History of Present Illness Initial Comments: 40-year-old male was emerge department complaining of having an issue with his roommate regarding his mom that caused him to become angry and anxious and during that time he felt ill short episode of palpitations which spontaneously resolved lasting for about 4 to 6 seconds. Currently no chest pain, no fever, chills, sweats, no nausea, no vomiting, no hemoptysis no hematemesis no presyncope no headache no blurry vision. Symptoms: palpitations Place: home Previous History of Same: No Severity: mild Quality: constant Improves With: nothing Worsens With: nothing Associated symptoms: palpitations. denies: diaphoresis, denies other symptoms, fever/chills, headaches, anorexia, malaise, seizure, syncope - Related Data Home Medications: Home Medications Medication Instructions Recorded Confirmed Last Taken Citalopram [Celexa] 1 tab PO QAM 05/20/18 05/20/18 Unknown Divalproex ER [Depakote ER] 500 mg PO HS 05/20/18 05/20/18 Unknown OLANZapine [Zyprexa] 1 tab PO HS 05/20/18 05/20/18 Unknown Paliperidone Palmitate [Invega 273 mg IM QMONTH 05/20/18 05/20/18 Unknown Trinza] Previous Rx's Medication Instructions Recorded Last Taken Type Benztropine [Cogentin] 2 mg PO BID #60 05/21/18 Unknown Rx Pantoprazole [Protonix TAB] 40 mg PO QDAY #60 05/21/18 Unknown Rx Ciprofloxacin HCl [Cipro] 500 mg PO QDAY #5 tablet 05/24/18 Unknown Rx Ibuprofen [Motrin 600 MG tab] 600 mg PO Q8H PRN #15 tablet 05/24/18 Unknown Rx polyethylene glycoL 3350 [Miralax 17 gm PO QDAY #15 packet 05/24/18 Unknown Rx 3350] Aspirin [Aspirin BABY CHEW TAB] 81 mg PO QDAY #30 tab.chew 07/03/20 Unknown Rx traMADoL [Ultram] 50 mg PO Q6HR PRN #14 tablet 07/15/20 Unknown Rx Albuterol Mdi (or & Nicu Only) 1 puff IH Q4-6H PRN #1 inha 08/03/20 Unknown Rx [ProAir HFA Inhaler] Montelukast [Singulair] 10 mg PO QPM #14 tablet 08/03/20 Unknown Rx predniSONE [Deltasone] 20 mg PO QDAY #5 tab 08/03/20 Unknown Rx Famotidine [Pepcid] 20 mg PO BID #30 tablet 08/07/20 Unknown Rx Ondansetron [Zofran ODT TAB] 8 mg PO Q8HR #20 tab.rapdis 08/07/20 Unknown Rx Allergies/Adverse Reactions: Allergies Allergy/AdvReac Type Severity Reaction Status Date / Time No Known Allergies Allergy Verified 07/03/20 17:49 ED Review of Systems ROS: Stated complaint: CHEST PAIN Other details as noted in HPI Comment: All other systems reviewed and negative ED Past Medical Hx - Past Medical History Hx Heart Attack/AMI: Yes (2005 one stent) Hx Diabetes: Yes Hx Psychiatric Treatment: Yes (Bipolar, Schizophrenia, Anxiety) Additional medical history: Bipolar, developmental delay,AFIB - Surgical History Hx Coronary Stent: Yes Additional Surgical History: Left Knee - Social History Smoking Status: Never Smoker Substance Use Type: None - Medications Home Medications: Home Medications Medication Instructions Recorded Confirmed Last Taken Type Citalopram [Celexa] 1 tab PO QAM 05/20/18 05/20/18 Unknown History Divalproex ER [Depakote ER] 500 mg PO HS 05/20/18 05/20/18 Unknown History OLANZapine [Zyprexa] 1 tab PO HS 05/20/18 05/20/18 Unknown History Paliperidone Palmitate [Invega 273 mg IM QMONTH 05/20/18 05/20/18 Unknown History Trinza] Benztropine [Cogentin] 2 mg PO BID #60 05/21/18 05/20/18 Unknown Rx Pantoprazole [Protonix TAB] 40 mg PO QDAY #60 05/21/18 05/20/18 Unknown Rx Ciprofloxacin HCl [Cipro] 500 mg PO QDAY #5 tablet 05/24/18 Unknown Rx Ibuprofen [Motrin 600 MG tab] 600 mg PO Q8H PRN #15 tablet 05/24/18 Unknown Rx polyethylene glycoL 3350 [Miralax 17 gm PO QDAY #15 packet 05/24/18 Unknown Rx 3350] Aspirin [Aspirin BABY CHEW TAB] 81 mg PO QDAY #30 tab.chew 07/03/20 Unknown Rx traMADoL [Ultram] 50 mg PO Q6HR PRN #14 tablet 07/15/20 Unknown Rx Albuterol Mdi (or & Nicu Only) 1 puff IH Q4-6H PRN #1 inha 08/03/20 Unknown Rx [ProAir HFA Inhaler] Montelukast [Singulair] 10 mg PO QPM #14 tablet 08/03/20 Unknown Rx predniSONE [Deltasone] 20 mg PO QDAY #5 tab 08/03/20 Unknown Rx Famotidine [Pepcid] 20 mg PO BID #30 tablet 08/07/20 Unknown Rx Ondansetron [Zofran ODT TAB] 8 mg PO Q8HR #20 tab.rapdis 08/07/20 Unknown Rx ED Physical Exam - General Limitations: No Limitations General appearance: alert, in no apparent distress - Head Head exam: Present: atraumatic, normocephalic - Eye Eye exam: Present: normal appearance, PERRL, EOMI - ENT ENT exam: Present: mucous membranes moist - Neck Neck exam: Present: normal inspection - Respiratory Respiratory exam: Present: normal lung sounds bilaterally. Absent: respiratory distress - Cardiovascular Cardiovascular Exam: Present: regular rate, normal rhythm. Absent: systolic murmur, diastolic murmur, rubs, gallop - GI/Abdominal GI/Abdominal exam: Present: soft, normal bowel sounds - Rectal Rectal exam: Present: deferred - Extremities Exam Extremities exam: Present: normal inspection - Back Exam Back exam: Present: normal inspection - Neurological Exam Neurological exam: Present: alert, oriented X3 - Psychiatric Psychiatric exam: Present: normal affect, normal mood - Skin Skin exam: Present: warm, dry, intact, normal color. Absent: rash ED Course Vital Signs 11/10/20 22:23 Temperature 98.5 F Pulse Rate 82 Respiratory 18 Rate Blood Pressure 109/47 O2 Sat by Pulse 99 Oximetry ED Medical Decision Making - Medical Decision Making 38-year-old male presents emergency department with symptoms consistent with acute anxiety reaction/panic attack. Low suspicion for acute cardiopulmonary process including ACS, PE or thoracic aortic dissection. Denies any ingestions or any other medical complaints with no evidence of any alcohol withdrawal symptoms. Presentation not consistent with toxidrome, ingestion given history and physical. Presentation not consistent with organic or medical emergency at this time. No acute indication for psychiatric consultation as he is without suicidal or homicidal ideation. No auditory or visual hallucinations. Cautious return precautions were discussed with . Critical care attestation.: If time is entered above; I have spent that time in minutes in the direct care of this critically ill patient, excluding procedure time. ED Disposition Clinical Impression: Anxiety as acute reaction to gross stress, Palpitations Disposition: HOME / SELF CARE / HOMELESS Is pt being admited?: No Does the pt Need Aspirin: No Condition: Stable Instructions: Palpitations, [id number], Generalized Anxiety Disorder, Adult Additional Instructions: 38-year-old male presents emergency department with symptoms consistent with acute anxiety reaction/panic attack. Low suspicion for acute cardiopulmonary process including ACS, PE or thoracic aortic dissection. Denies any ingestions or any other medical complaints with no evidence of any alcohol withdrawal symptoms. Presentation not consistent with organic or medical emergency at this time. No acute indication for psychiatric consultation as he is without suicidal or homicidal ideation. No auditory or visual hallucinations. Return to emergency department should you develop any fever, severe chest pain or shortness of breath, and syncope, suicidal homicidal ideation or any other than symptoms suggesting that your condition is worsening Referrals: PRIMARY CARE [Primary Care Provider] - 3-5 Days [facility] [Provider Group] - 3-5 Days
[2020-11-11 00:53] VITALS: BP 117/69
== END 2020-11-10 23:30 | disposition home or self-care (01) ==
LOC: ED 21:34
DX: F41.8 Other specified anxiety disorders (principal); R00.2 Palpitations; E11.8 Type 2 diabetes mellitus with unspecified complications; I25.2 Old myocardial infarction; F31.9 Bipolar disorder, unspecified; F20.9 Schizophrenia, unspecified
CPT/HCPCS: 99283

== ENCOUNTER 2020-11-13 18:21 | Emergency (ER) | payer MEDICARE ==
[2020-11-13 18:36] VITALS: BP 112/72
[2020-11-13] MEDS ORDERED: ONDANSETRON 4 MG ODT TAB PO ONE (20:16)
--- NOTE | 2020-11-13 20:42 | Emergency Department Report ---
ED N/V/D HPI - General Chief complaint: Nausea/Vomiting/Diarrhea Stated complaint: NAUSEA/VOMITING Time Seen by Provider: 11/13/20 20:31 Source: patient Mode of arrival: Ambulatory Limitations: No Limitations - History of Present Illness Initial comments: 40-year-old male [facility] emerge department complaining of having some issues with nausea and vomiting after eating some peanut butter and jelly an unknown dinner and also taking a new medication. Reports no diarrhea, no constipation, no fever, chills, sweats. No hemoptysis no hematemesis no hematochezia complaint: nausea, vomiting -: Gradual Associated Abdominal Pain: No Radiation: none Severity: mild Improves with: none Worsens with: none Associated Symptoms: denies other symptoms - Related Data Home Medications Medication Instructions Recorded Confirmed Last Taken Citalopram [Celexa] 1 tab PO QAM 05/20/18 05/20/18 Unknown Divalproex ER [Depakote ER] 500 mg PO HS 05/20/18 05/20/18 Unknown OLANZapine [Zyprexa] 1 tab PO HS 05/20/18 05/20/18 Unknown Paliperidone Palmitate [Invega 273 mg IM QMONTH 05/20/18 05/20/18 Unknown Trinza] Previous Rx's Medication Instructions Recorded Last Taken Type Benztropine [Cogentin] 2 mg PO BID #60 05/21/18 Unknown Rx Pantoprazole [Protonix TAB] 40 mg PO QDAY #60 05/21/18 Unknown Rx Ciprofloxacin HCl [Cipro] 500 mg PO QDAY #5 tablet 05/24/18 Unknown Rx Ibuprofen [Motrin 600 MG tab] 600 mg PO Q8H PRN #15 tablet 05/24/18 Unknown Rx polyethylene glycoL 3350 [Miralax 17 gm PO QDAY #15 packet 05/24/18 Unknown Rx 3350] Aspirin [Aspirin BABY CHEW TAB] 81 mg PO QDAY #30 tab.chew 07/03/20 Unknown Rx traMADoL [Ultram] 50 mg PO Q6HR PRN #14 tablet 07/15/20 Unknown Rx Albuterol Mdi (or & Nicu Only) 1 puff IH Q4-6H PRN #1 inha 08/03/20 Unknown Rx [ProAir HFA Inhaler] Montelukast [Singulair] 10 mg PO QPM #14 tablet 08/03/20 Unknown Rx predniSONE [Deltasone] 20 mg PO QDAY #5 tab 08/03/20 Unknown Rx Famotidine [Pepcid] 20 mg PO BID #30 tablet 08/07/20 Unknown Rx Ondansetron [Zofran ODT TAB] 8 mg PO Q8HR #20 tab.rapdis 08/07/20 Unknown Rx Ondansetron [Zofran ODT TAB] 8 mg PO Q8HR #14 tab.rapdis 11/13/20 Unknown Rx Allergies Allergy/AdvReac Type Severity Reaction Status Date / Time No Known Allergies Allergy Verified 07/03/20 17:49 ED Review of Systems ROS: Stated complaint: NAUSEA/VOMITING Other details as noted in HPI Comment: All other systems reviewed and negative ED Past Medical Hx - Past Medical History Previous Medical History?: Yes Hx Heart Attack/AMI: Yes (2005 one stent) Hx Diabetes: Yes Hx Psychiatric Treatment: Yes (Bipolar, Schizophrenia, Anxiety) Additional medical history: Bipolar, developmental delay,AFIB - Surgical History Past Surgical History?: Yes Hx Coronary Stent: Yes Additional Surgical History: Left Knee - Social History Smoking Status: Never Smoker Substance Use Type: None - Medications Home Medications: Home Medications Medication Instructions Recorded Confirmed Last Taken Type Citalopram [Celexa] 1 tab PO QAM 05/20/18 05/20/18 Unknown History Divalproex ER [Depakote ER] 500 mg PO HS 05/20/18 05/20/18 Unknown History OLANZapine [Zyprexa] 1 tab PO HS 05/20/18 05/20/18 Unknown History Paliperidone Palmitate [Invega 273 mg IM QMONTH 05/20/18 05/20/18 Unknown History Trinza] Benztropine [Cogentin] 2 mg PO BID #60 05/21/18 05/20/18 Unknown Rx Pantoprazole [Protonix TAB] 40 mg PO QDAY #60 05/21/18 05/20/18 Unknown Rx Ciprofloxacin HCl [Cipro] 500 mg PO QDAY #5 tablet 05/24/18 Unknown Rx Ibuprofen [Motrin 600 MG tab] 600 mg PO Q8H PRN #15 tablet 05/24/18 Unknown Rx polyethylene glycoL 3350 [Miralax 17 gm PO QDAY #15 packet 05/24/18 Unknown Rx 3350] Aspirin [Aspirin BABY CHEW TAB] 81 mg PO QDAY #30 tab.chew 07/03/20 Unknown Rx traMADoL [Ultram] 50 mg PO Q6HR PRN #14 tablet 07/15/20 Unknown Rx Albuterol Mdi (or & Nicu Only) 1 puff IH Q4-6H PRN #1 inha 08/03/20 Unknown Rx [ProAir HFA Inhaler] Montelukast [Singulair] 10 mg PO QPM #14 tablet 08/03/20 Unknown Rx predniSONE [Deltasone] 20 mg PO QDAY #5 tab 08/03/20 Unknown Rx Famotidine [Pepcid] 20 mg PO BID #30 tablet 08/07/20 Unknown Rx Ondansetron [Zofran ODT TAB] 8 mg PO Q8HR #20 tab.rapdis 08/07/20 Unknown Rx Ondansetron [Zofran ODT TAB] 8 mg PO Q8HR #14 tab.rapdis 11/13/20 Unknown Rx ED Physical Exam - General Limitations: No Limitations General appearance: alert, in no apparent distress - Head Head exam: Present: atraumatic, normocephalic - Eye Eye exam: Present: normal appearance, PERRL, EOMI Pupils: Present: normal accommodation - ENT ENT exam: Present: normal exam, mucous membranes moist - Neck Neck exam: Present: normal inspection - Respiratory Respiratory exam: Present: normal lung sounds bilaterally. Absent: respiratory distress - Cardiovascular Cardiovascular Exam: Present: regular rate, normal rhythm. Absent: systolic murmur, diastolic murmur, rubs, gallop - GI/Abdominal GI/Abdominal exam: Present: soft, normal bowel sounds, other (No Cage sign). Absent: tenderness, guarding, rebound, hypoactive bowel sounds, organomegaly, mass - Rectal Rectal exam: Present: deferred - Extremities Exam Extremities exam: Present: normal inspection - Back Exam Back exam: Present: normal inspection - Neurological Exam Neurological exam: Present: alert, oriented X3 - Psychiatric Psychiatric exam: Present: normal affect, normal mood - Skin Skin exam: Present: warm, dry, intact, normal color. Absent: rash ED Course Vital Signs 11/13/20 18:34 Temperature 98.3 F Pulse Rate 78 Respiratory 18 Rate Blood Pressure 112/72 [Left] O2 Sat by Pulse 98 Oximetry ED Medical Decision Making - Medical Decision Making Patient presents to the emergency department with nausea, vomiting, without diarrhea, differential diagnosis includes possible acute gastroenteritis. Abdominal examination without peritoneal signs. Currently patient is euvolemic without evidence of dehydration. No evidence of surgical abdomen or other acute medical emergency including bowel obstruction, viscus perforation, vascular catastrophe, appendicitis, cholecystitis at this time. Presentation not consistent with other acute emergent causes of vomiting and diarrhea at this time. No indication for abdominal imaging Plan supportive care, oral/IV rehydration, antiemetics and reassess Critical care attestation.: If time is entered above; I have spent that time in minutes in the direct care of this critically ill patient, excluding procedure time. ED Disposition Clinical Impression: Nausea & vomiting Disposition: 01 HOME / SELF CARE / HOMELESS Is pt being admited?: No Does the pt Need Aspirin: No Condition: Stable Instructions: Nausea and Vomiting, Adult Prescriptions: Ondansetron [Zofran ODT TAB] 8 mg PO Q8HR #14 tab.rapdis Referrals: [facility] [Provider Group] - 3-5 Days
== END 2020-11-13 20:49 | disposition home or self-care (01) ==
LOC: ED 18:21
DX: R11.2 Nausea with vomiting, unspecified (principal); E11.8 Type 2 diabetes mellitus with unspecified complications; Z86.79 Personal history of other diseases of the circulatory system
CPT/HCPCS: 99282; Q0162

== ENCOUNTER 2020-11-24 20:00 | Emergency (ER) | payer MEDICARE ==
[2020-11-24 22:30] VITALS: BP 101/60
[2020-11-24] MEDS ORDERED: SULFAMETHOXAZOLE/TRIMETHOPRIM 800/160MG DS TAB PO ONE (23:05)
[2020-11-24] MEDS ORDERED: IBUPROFEN 600 MG TAB PO ONE (23:05)
[2020-11-24] MEDS ORDERED: ACETAMINOPHEN 325 MG TAB PO ONE (23:06)
--- NOTE | 2020-11-24 23:09 | Emergency Department Report ---
ED General Adult HPI - General Chief complaint: Skin/Abscess/Foreign Body Stated complaint: CYST ON BUTTOCKS Source: patient Mode of arrival: Ambulatory Limitations: Altered Mental Status - History of Present Illness Initial comments: Patient is a 40-year-old white male with a history of bipolar disorder, anxiety and depression, paranoid schizophrenia, coronary artery disease s/p OR, and [id number] diabetes who presents to the ED with complaint of acute onset persistent painful swelling erythematous maculopapular rash on left gluteus for the last 2 days. Patient states that the pain is worse when he sits down or when he walks. Patient denies fever, chills, nausea, vomiting, dizziness, traumatic injury, fall, heavy lifting, hematuria, dysuria, testicular pain, abdominal pain or back pain. MD Complaint: painful swollen rash on left gluteus -: Sudden, days(s) (2) Location: buttocks (left) Radiation: non-radiation Severity scale (0 -10): 7 Quality: aching, sharp Consistency: constant Improves with: none Worsens with: none Associated Symptoms: denies other symptoms, rash (Painful swelling mild erythematous maculopapular rash on left gluteus). denies: confusion, chest pain, cough, diaphoresis, headaches, loss of appetite, malaise, shortness of breath, syncope, other Treatments Prior to Arrival: none - Related Data Home Medications Medication Instructions Recorded Confirmed Last Taken Citalopram [Celexa] 1 tab PO QAM 05/20/18 05/20/18 Unknown Divalproex ER [Depakote ER] 500 mg PO HS 05/20/18 05/20/18 Unknown OLANZapine [Zyprexa] 1 tab PO HS 05/20/18 05/20/18 Unknown Paliperidone Palmitate [Invega 273 mg IM QMONTH 05/20/18 05/20/18 Unknown Trinza] Previous Rx's Medication Instructions Recorded Last Taken Type Benztropine [Cogentin] 2 mg PO BID #60 05/21/18 Unknown Rx Pantoprazole [Protonix TAB] 40 mg PO QDAY #60 05/21/18 Unknown Rx Ciprofloxacin HCl [Cipro] 500 mg PO QDAY #5 tablet 05/24/18 Unknown Rx Ibuprofen [Motrin 600 MG tab] 600 mg PO Q8H PRN #15 tablet 05/24/18 Unknown Rx polyethylene glycoL 3350 [Miralax 17 gm PO QDAY #15 packet 05/24/18 Unknown Rx 3350] Aspirin [Aspirin BABY CHEW TAB] 81 mg PO QDAY #30 tab.chew 07/03/20 Unknown Rx traMADoL [Ultram] 50 mg PO Q6HR PRN #14 tablet 07/15/20 Unknown Rx Albuterol Mdi (or & Nicu Only) 1 puff IH Q4-6H PRN #1 inha 08/03/20 Unknown Rx [ProAir HFA Inhaler] Montelukast [Singulair] 10 mg PO QPM #14 tablet 08/03/20 Unknown Rx predniSONE [Deltasone] 20 mg PO QDAY #5 tab 08/03/20 Unknown Rx Famotidine [Pepcid] 20 mg PO BID #30 tablet 08/07/20 Unknown Rx Ondansetron [Zofran ODT TAB] 8 mg PO Q8HR #20 tab.rapdis 08/07/20 Unknown Rx Ondansetron [Zofran ODT TAB] 8 mg PO Q8HR #14 tab.rapdis 11/13/20 Unknown Rx Ibuprofen [Motrin] 800 mg PO Q8HR PRN #30 tablet 11/24/20 Unknown Rx Sulfamethoxazole/Trimethoprim 1 each PO Q12H #20 tablet 11/24/20 Unknown Rx [Bactrim DS TAB] Allergies Allergy/AdvReac Type Severity Reaction Status Date / Time No Known Allergies Allergy Verified 07/03/20 17:49 ED Review of Systems ROS: Stated complaint: CYST ON BUTTOCKS Other details as noted in HPI Constitutional: denies: chills, fever Eyes: denies: eye pain, eye discharge, vision change ENT: denies: ear pain, throat pain Respiratory: denies: cough, shortness of breath, wheezing Cardiovascular: denies: chest pain, palpitations Endocrine: no symptoms reported Gastrointestinal: denies: abdominal pain, nausea, diarrhea Genitourinary: denies: urgency, dysuria Musculoskeletal: denies: back pain, joint swelling, arthralgia Skin: rash (Swollen, mildly erythematous maculopapular painful rash on left gluteus), change in color. denies: lesions Neurological: denies: headache, weakness, paresthesias Psychiatric: denies: anxiety, depression Hematological/Lymphatic: denies: easy bleeding, easy bruising ED Past Medical Hx - Past Medical History Hx Heart Attack/AMI: Yes (2005 one stent) Hx Diabetes: Yes Hx Psychiatric Treatment: Yes (Bipolar, Schizophrenia, Anxiety) Additional medical history: Bipolar, developmental delay,AFIB - Surgical History Hx Coronary Stent: Yes Additional Surgical History: Left Knee - Social History Smoking Status: Never Smoker Substance Use Type: None - Medications Home Medications: Home Medications Medication Instructions Recorded Confirmed Last Taken Type Citalopram [Celexa] 1 tab PO QAM 05/20/18 05/20/18 Unknown History Divalproex ER [Depakote ER] 500 mg PO HS 05/20/18 05/20/18 Unknown History OLANZapine [Zyprexa] 1 tab PO HS 05/20/18 05/20/18 Unknown History Paliperidone Palmitate [Invega 273 mg IM QMONTH 05/20/18 05/20/18 Unknown History Trinza] Benztropine [Cogentin] 2 mg PO BID #60 05/21/18 05/20/18 Unknown Rx Pantoprazole [Protonix TAB] 40 mg PO QDAY #60 05/21/18 05/20/18 Unknown Rx Ciprofloxacin HCl [Cipro] 500 mg PO QDAY #5 tablet 05/24/18 Unknown Rx Ibuprofen [Motrin 600 MG tab] 600 mg PO Q8H PRN #15 tablet 05/24/18 Unknown Rx polyethylene glycoL 3350 [Miralax 17 gm PO QDAY #15 packet 05/24/18 Unknown Rx 3350] Aspirin [Aspirin BABY CHEW TAB] 81 mg PO QDAY #30 tab.chew 07/03/20 Unknown Rx traMADoL [Ultram] 50 mg PO Q6HR PRN #14 tablet 07/15/20 Unknown Rx Albuterol Mdi (or & Nicu Only) 1 puff IH Q4-6H PRN #1 inha 08/03/20 Unknown Rx [ProAir HFA Inhaler] Montelukast [Singulair] 10 mg PO QPM #14 tablet 08/03/20 Unknown Rx predniSONE [Deltasone] 20 mg PO QDAY #5 tab 08/03/20 Unknown Rx Famotidine [Pepcid] 20 mg PO BID #30 tablet 08/07/20 Unknown Rx Ondansetron [Zofran ODT TAB] 8 mg PO Q8HR #20 tab.rapdis 08/07/20 Unknown Rx Ondansetron [Zofran ODT TAB] 8 mg PO Q8HR #14 tab.rapdis 11/13/20 Unknown Rx Ibuprofen [Motrin] 800 mg PO Q8HR PRN #30 tablet 11/24/20 Unknown Rx Sulfamethoxazole/Trimethoprim 1 each PO Q12H #20 tablet 11/24/20 Unknown Rx [Bactrim DS TAB] ED Physical Exam - General Limitations: Altered Mental Status General appearance: alert, in no apparent distress - Head Head exam: Present: atraumatic, normocephalic, normal inspection - Eye Eye exam: Present: normal appearance, PERRL, EOMI Pupils: Present: normal accommodation - ENT ENT exam: Present: normal exam, normal orophraynx, mucous membranes moist, TM's normal bilaterally, normal external ear exam - Neck Neck exam: Present: normal inspection, full ROM - Respiratory Respiratory exam: Present: normal lung sounds bilaterally. Absent: respiratory distress, wheezes, rales, rhonchi, chest wall tenderness, accessory muscle use, decreased breath sounds, prolonged expiratory - Cardiovascular Cardiovascular Exam: Present: regular rate, normal rhythm, normal heart sounds. Absent: systolic murmur, diastolic murmur, rubs, gallop - GI/Abdominal GI/Abdominal exam: Present: soft, normal bowel sounds. Absent: tenderness, guarding, rebound, hyperactive bowel sounds, hypoactive bowel sounds, organomegaly - Extremities Exam Extremities exam: Present: normal inspection, full ROM, normal capillary refill - Back Exam Back exam: Present: normal inspection, full ROM. Absent: tenderness, CVA tenderness (R), CVA tenderness (L), muscle spasm, paraspinal tenderness, vertebral tenderness - Neurological Exam Neurological exam: Present: alert, oriented X3, CN II-XII intact, normal gait, reflexes normal - Psychiatric Psychiatric exam: Present: normal affect, normal mood - Skin Skin exam: Present: warm, dry, intact, normal color, rash (Mild erythematous maculopapular nonfluctuant rash on left gluteus with localized tenderness), erythema ED Course Vital Signs 11/24/20 22:24 Temperature 98.6 F Pulse Rate 66 Respiratory 22 Rate Blood Pressure 101/60 O2 Sat by Pulse 100 Oximetry ED Medical Decision Making - Medical Decision Making This is a 40-year-old white male with a history of bipolar disorder, anxiety and depression, paranoid schizophrenia, coronary artery disease s/p OR, and [id number] diabetes who presents to the ED with complaint of acute onset persistent painful swelling erythematous maculopapular rash on left gluteus for the last 2 days. Patient states that the pain is worse when he sits down or when he walks. In the ED, patient is alert and oriented x3 and is not in any distress. Patient however appears to be in pain. Patient was treated for pain in the ED and discharged home on pain medication and antibiotics and advised to follow-up with his primary care physician in 7 to 10 days for reevaluation. Patient was advised return to the ED immediately if symptoms get worse. Patient verbalized understanding. - Differential Diagnosis Cellulitis; folliculitis; cutaneous abscess Critical care attestation.: If time is entered above; I have spent that time in minutes in the direct care of this critically ill patient, excluding procedure time. ED Disposition Clinical Impression: Cellulitis of left buttock, Cutaneous abscess of buttock Disposition: 01 HOME / SELF CARE / HOMELESS Is pt being admited?: No Does the pt Need Aspirin: No Condition: Stable Instructions: Incision and Drainage, Care After, Skin Abscess, Sazc-zr-[id number], Cellulitis, Adult, [id number] Additional Instructions: Take medication with food, drink plenty of fluids and follow-up with your prima ry care physician in 7 to 10 days for reevaluation. Return to the ED immediately if symptoms get worse. Prescriptions: Sulfamethoxazole/Trimethoprim [Bactrim DS TAB] 1 each PO Q12H #20 tablet Ibuprofen [Motrin] 800 mg PO Q8HR PRN #30 tablet PRN Reason: Pain , Severe (7-10) Referrals: [facility] [Provider Group] - 7-10 days Time of Disposition: 23:07 Print Language: SYRIAC
== END 2020-11-25 00:13 | disposition home or self-care (01) ==
LOC: ED 20:00
DX: L02.31 Cutaneous abscess of buttock (principal); L03.317 Cellulitis of buttock; E11.8 Type 2 diabetes mellitus with unspecified complications; F31.9 Bipolar disorder, unspecified; F20.9 Schizophrenia, unspecified; F41.8 Other specified anxiety disorders; Z98.890 Other specified postprocedural states
CPT/HCPCS: 99283